=== PATIENT | female | born 1960 | race Asian ===

== ENCOUNTER 2019-01-27 20:40 | Inpatient (IN) | payer MEDICARE, MEDICAID ==
[~2019-01-27] VITALS: Ht 162.6 cm; Wt 89.4 kg
[2019-01-27 20:45] VITALS: BP 131/80
--- NOTE | 2019-01-27 20:45 | NUR ---
ED Nurse Note: PT brought in my AP for complaint of lower back pain and UTI. Pt alert, responsive but there is difficulty obtaining information from pt as there is a delay in speech. Pt has hx of paranoid schizophrenia, DMII, HLD, anxiety, myopia, COPD, neuropathy, depression, HTN, and falls. Labs drawn and urine sent to lab. VSS. Showing no signs of acute distress.
[2019-01-27] MEDS ORDERED: CATAPRES0.1 MG ORAL (20:49)
[2019-01-27] MEDS ORDERED: COLACE100 MG ORAL (20:50)
[2019-01-27] MEDS ORDERED: DEPAKOTE125 MG PO (20:50)
[2019-01-27] MEDS ORDERED: DULCOLAX10 MG RC (20:51)
[2019-01-27] MEDS ORDERED: FLEET ENEMA133 ML RECTAL (20:51)
[2019-01-27] MEDS ORDERED: GABAPENTIN300 MG ORAL (20:52)
[2019-01-27] MEDS ORDERED: GERI-LANTA LIQ355 ML PO (20:52)
[2019-01-27] MEDS ORDERED: MILK OF MA400 MG/51 ORAL (20:53)
[2019-01-27] MEDS ORDERED: LACTULOSE20 GM/301 ORAL (20:53)
[2019-01-27] MEDS ORDERED: OS-CAL 500+D31 EAC1 PO (20:54)
[2019-01-27] MEDS ORDERED: TYLENOL EXTRA500 MG ORAL (20:54)
[2019-01-27] MEDS ORDERED: UTI-STAT L3875 MG/31 PO (20:55)
[2019-01-27] MEDS ORDERED: ZYPREXA10 MG ORAL ×2 (20:55→23:59)
[2019-01-27] MEDS ORDERED: VITAMIN D1000 UNI1 ORAL (20:55)
[2019-01-27] MEDS ORDERED: Ketorolac 30mg Inj IV ONE (21:00)
--- NOTE | 2019-01-27 21:06 | Emergency Room Report ---
History of Present Illness General Chief Complaint: Pain Source: Patient, Medical Record Present Illness HPI This is a 58-year-old female with a history of schizo affective disorder. Also history of COPD and hypotension. Patient presents with chief complaint of lower back pain and painful urination. Onset for last few days. No nausea no vomiting. No fever chills. Pain is 8 out of 10. History is limited because of her psychiatric history. Patient was sent in by her primary care doctor from [facility] for further workup. Allergies: Coded Allergies: PENICILLINS (Verified Allergy, Unknown, 01/27/19) Uncoded Allergies: EGGS (Allergy, Unknown, 01/27/19) Patient History Past Medical History: see triage record, old chart reviewed, HTN, COPD, psych hx Past Surgical History: other Pertinent Family History: none Social History: Reports: smoking Last Menstrual Period: na Now: No Immunizations: other Reviewed Nursing Documentation: PMH: Agreed; PSxH: Agreed Nursing Documentation-PMH Past Medical History: No History, Except For Hx Hypertension: Yes Hx COPD: Yes Hx Diabetes: Yes History Of Psychiatric Problem: Yes - bipolar, schizoaffective Review of Systems Eye: Denies: eye pain, blurred vision ENT: Denies: ear pain, nose congestion, throat swelling Respiratory: Denies: cough, shortness of breath Cardiovascular: Denies: chest pain, palpitations Gastrointestinal: Denies: abdominal pain, diarrhea, nausea, vomiting Genitourinary: Reports: dysuria Musculoskeletal: Reports: back pain; Denies: joint pain Skin: Denies: rash Neurological: Denies: headache, numbness Endocrine: Denies: increased thirst, increased urine Hematologic/Lymphatic: Denies: easy bruising All Other Systems: negative except mentioned in HPI Physical Exam Vital Signs Date Time Temp Pulse Resp B/P (MAP) Pulse Ox O2 Delivery O2 Flow Rate FiO2 01/27/19 20:40 98.4 85 17 94 Room Air vitals unremarkable Sp02 EP Interpretation: reviewed, normal General Appearance: well appearing, no apparent distress, alert Head: normocephalic, atraumatic Eyes: bilateral eye PERRL, bilateral eye EOMI ENT: hearing grossly normal, normal pharynx Neck: full range of motion, supple, no meningismus Respiratory: chest non-tender, lungs clear, normal breath sounds Cardiovascular #1: regular rate, rhythm, no murmur Gastrointestinal: normal bowel sounds, non tender, no mass, no organomegaly, no bruit, non-distended Musculoskeletal: back normal, gait/station normal, normal range of motion Psychiatric: mood/affect normal Skin: warm/dry Medical Decision Making Diagnostic Impression: Primary Impression: Intractable low back pain Additional Impression: Lumbar disc disease ER Course Patient presents with back pain and some dysuria. No evidence of any infection on the urine. Labs unremarkable. CT scan showed degenerative changes with right psoas and iliopsoas muscle atrophy. I discussed the case with Dr. Albarado who will admit for further workup. Lab Results Impression labs unremarkable CT/MRI/US Diagnostic Results CT/MRI/US Diagnostic Results : Imaging Test Ordered: CT lumbar spine Impression Read by radiologist. Degenerative disc disease. Right psoas muscle atrophy. Last Vital Signs Date Time Temp Pulse Resp B/P (MAP) Pulse Ox O2 Delivery O2 Flow Rate FiO2 01/27/19 20:40 98.4 85 17 94 Room Air Status: improved Disposition: ADMITTED INPATIENT Condition: Serious Referrals: Alexandro Albarado DO (PCP) Reuben Vences MD January 27, 2019 21:06
[2019-01-27 21:11] LABS: APPEARANCE,URINE CLEAR; BASOPHILS % (AUTO) 1.4 % (0.0-2.0); BILIRUBIN, URINE NEGATIVE (NEGATIVE); COLOR,URINE PALE YELLOW; EOSINOPHILS % (AUTO) 4.8 % (0.0-3.0); GLUCOSE, URINE (UA) NEGATIVE (NEGATIVE); HEMATOCRIT 43.7 % (37.0-47.0); HEMOGLOBIN 14.6 G/DL (12.0-16.0); KETONES,URINE 2+ (NEGATIVE); LEUKOCYTE ESTERASE ,URINE 1+ (NEGATIVE); LYMPHOCYTES % (AUTO) 47.2 % (20.0-45.0); MEAN CORPUSCULAR VOLUME 91 FL (80-99); MONOCYTES % (AUTO) 5.7 % (1.0-10.0); NEUTROPHILS % (AUTO) 40.9 % (45.0-75.0); NITRITE,URINE NEGATIVE (NEGATIVE); PH,URINE 7 (4.5-8.0); PLATELET COUNT 210 K/UL (150-450); PROTEIN,URINE NEGATIVE (NEGATIVE); RED BLOOD COUNT 4.81 M/UL (4.20-5.40); RED CELL DISTRIBUTION WIDTH 12.6 % (11.6-14.8); UROBILINOGEN,URINE NORMAL MG/DL (0.0-1.0); WHITE BLOOD COUNT 9.8 K/UL (4.8-10.8)
[2019-01-27 21:23] LABS: ANION GAP 6 mmol/L (5-15); BLOOD UREA NITROGEN 10 mg/dL (7-18); CALCIUM 9.7 MG/DL (8.5-10.1); CARBON DIOXIDE 32 MMOL/L (21-32); CHLORIDE 103 MMOL/L (98-107); CREATININE 0.7 MG/DL (0.55-1.30); POTASSIUM 4.3 MMOL/L (3.5-5.1); SODIUM 141 MMOL/L (136-145)
--- NOTE | 2019-01-27 22:36 | Diagnostic Imaging Report ---
EXAM: CT Lumbar Spine Without Intravenous Contrast CLINICAL HISTORY: Patient has schizophrenia and was only able to report lower back pain. No additional information provided TECHNIQUE: Axial computed tomography images of the lumbar spine without intravenous contrast. CTDI is 24.05 mGy and DLP is 695 mGy-cm. One or more of the following dose reduction techniques were used: automated exposure control, adjustment of the mA and/or kV according to patient size, use of iterative reconstruction technique. Coronal and sagittal reconstructions are performed COMPARISON: No relevant prior studies available. FINDINGS: Vertebrae: Unremarkable. No fracture. Discs/spinal canal/neural foramina: Mild degenerative disc disease. No spinal canal stenosis. Soft tissues: Right psoas and iliopsoas muscle atrophy. Vasculature: Small amount of atherosclerotic calcifications. IMPRESSION: 1. Mild degenerative disc disease. 2. Right psoas and iliopsoas muscle atrophy.
--- NOTE | 2019-01-27 22:45 | NUR ---
ED Nurse Note: Pt transferred to M/S floor. Report given to CARMELA Ornelas. VSS. Showing no signs of acute distress. All belongings taken with patient along with belongings list. Pt accompanied by building code administrator.
--- NOTE | 2019-01-27 23:00 | NUR ---
NURSE NOTES: RECEIVED PATIENT FROM ER, GOT REPORT FROM CAMRELA PARDO. PATIENT IN BED, ASLEEP, AROUSABLE TO TOUCH AND NAME. PATIENT OPENS EYES. WHEN NURSE ASKED THE PATIENT QUESTIONS FOR NEURO CHECK, PATIENT JUST STARED AND DID NOT ANSWER AND THEN WENT BACK TO SLEEP. IV IN PLACE. REVIEWED PATIENT BELONGINGS WHICH WERE A BLANKET AND WATCH WITH CHARGE NURSE SINCE PATIENT IS SLEEPING AND ADMITTING DIAGNOSIS IS ALTERED MENTAL STATUS. SKIN ASSESSMENT DONE - NO OPEN WOUNDS OR PRESSURE ULCERS NOTED, NOTED TO HAVE HEALED SCAR NEAR THE BUTTOCKS AREA AND DISCOLORATION NEAR THE LEFT ANKLE. BED IN LOWEST POSITION, CALL LIGHT WITHIN REACH, BED ALARM ON. WILL CONTINUE TO MONITOR.
--- NOTE | 2019-01-27 23:11 | NUR ---
NURSE NOTES: LEFT MESSAGE FOR DR. MCCONNELL REGARDING ADMISSION ORDERS, AWAITING RESPONSE. CHARGE NURSE AWARE.
[2019-01-27 23:15] VITALS: BP 119/64
[2019-01-27] MEDS ORDERED: ACETAMINOPHEN500 M5 ORAL (23:59)
[2019-01-27] MEDS ORDERED: BENZTROPINE ME0.5 MG PO (23:59)
[2019-01-27] MEDS ORDERED: DEPAKOTE250 MG PO (23:59)
--- NOTE | 2019-01-28 01:01 | Consultation ---
History of Present Illness General Date patient seen: January 27, 2019 Chief Complaint: AMS Referring physician: Dr. Gregorio Gan Present Illness HPI Katina Almaraz is a 58-year-old female with a history of schizo affective disorder, COPD, and hypotension who presented to [facility] ED with lower back pain and painful urination for the last few days. She is normally a halfway resident and is a poor historian. At the time of her exam, she is lethargic and somewhat confused. . Allergies: Coded Allergies: PENICILLINS (Verified Allergy, Unknown, 01/27/19) Uncoded Allergies: EGGS (Allergy, Unknown, 01/27/19) Medication History Scheduled Benztropine Mesylate* (Cogentin*), 1 MG PO BID, (Reported) Calcium Carbonate/Vitamin D3 (Os-Eduar 500+D3 Caplet), 1 EACH PO DAILY, (Reported) Cholecalciferol (Vitamin D3)* (Vitamin D*), 2,000 UNITS ORAL DAILY, (Reported) Cran/Vitc/Mannose/Inulin/Brom (Uti-Stat Liquid), 30 ML PO DAILY, (Reported) Divalproex Sodium (Depakote), 125 MG PO DAILY, (Reported) Divalproex Sodium* (Depakote*), 250 MG PO HS, (Reported) Docusate Sodium* (Colace*), 100 MG ORAL DAILY, (Reported) Gabapentin* (Gabapentin*), 300 MG ORAL TID, (Reported) Lactulose (Lactulose*), 60 ML ORAL TID, (Reported) Olanzapine* (Zyprexa*), 10 MG ORAL DAILY, (Reported) Olanzapine* (Zyprexa*), 15 MG ORAL BEDTIME, (Reported) Scheduled PRN Acetaminophen* (Tylenol Extra Strength*), 1,000 MG ORAL Q6H PRN for Moderate Pain (Pain Scale 4-6), (Reported) Acetaminophen* (Acetaminophen 325MG Tablet*), 650 MG ORAL Q6H PRN for Mild Pain (Pain Scale 1-3), (Reported) Bisacodyl (Dulcolax), 10 MG RC for Constipation, (Reported) Clonidine Hcl* (Catapres*), 0.1 MG ORAL EVERY 6 HOURS PRN for For High Blood Pressure, (Reported) Mag Hydrox/Al Hydrox/Simeth (Ursula-Lanta Liquid), 30 ML PO Q4HR PRN for GI DISTRESS, (Reported) Magnesium Hydroxide* (Milk Of Magnesia*), 30 ML ORAL DAILY PRN for Constipation, (Reported) Na Phos,M-B/Na Phos,Di-Ba* (Fleet Enema*), 133 ML RECTAL Q2DAYS PRN for Constipation, (Reported) Patient History Limited by: medical condition History Provided By: Patient, Medical Record Healthcare decision maker Resuscitation status Advanced Directive on File Review of Systems All Other Systems: negative except mentioned in HPI Physical Exam General Appearance: WD/WN, no apparent distress, lethargic, confused - To name of hospital and date. 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, no motor/sensory deficits, no Babinski, disoriented, depressed affect Musculoskeletal: no effusion, atrophy - Right Psoas/ Ilipsoas Weakness - limited movement on exam- exam also lethargic Last 24 Hour Vital Signs Date Time Temp Pulse Resp B/P (MAP) Pulse Ox O2 Delivery O2 Flow Rate FiO2 01/27/19 23:38 Room Air 01/27/19 23:15 97.2 73 18 119/64 (82) 98 01/27/19 22:45 97.9 78 18 114/61 99 Room Air 01/27/19 20:45 98.4 74 17 131/80 94 Room Air 01/27/19 20:40 98.4 85 17 94 Room Air Laboratory Tests Test 01/27/19 20:55 White Blood Count 9.8 K/UL (4.8-10.8) Red Blood Count 4.81 M/UL (4.20-5.40) Hemoglobin 14.6 G/DL (12.0-16.0) Hematocrit 43.7 % (37.0-47.0) Mean Corpuscular Volume 91 FL (80-99) Mean Corpuscular Hemoglobin 30.4 PG (27.0-31.0) Mean Corpuscular Hemoglobin Concent 33.4 G/DL (32.0-36.0) Red Cell Distribution Width 12.6 % (11.6-14.8) Platelet Count 210 K/UL (150-450) Mean Platelet Volume 6.0 FL (6.5-10.1) L Neutrophils (%) (Auto) 40.9 % (45.0-75.0) L Lymphocytes (%) (Auto) 47.2 % (20.0-45.0) H Monocytes (%) (Auto) 5.7 % (1.0-10.0) Eosinophils (%) (Auto) 4.8 % (0.0-3.0) H Basophils (%) (Auto) 1.4 % (0.0-2.0) Urine Color Pale yellow Urine Appearance Clear Urine pH 7 (4.5-8.0) Urine Specific [place] 1.010 (1.005-1.035) Urine Protein Negative (NEGATIVE) Urine Glucose (UA) Negative (NEGATIVE) Urine Ketones 2+ (NEGATIVE) H Urine Blood 5+ (NEGATIVE) H Urine Nitrite Negative (NEGATIVE) Urine Bilirubin Negative (NEGATIVE) Urine Urobilinogen Normal MG/DL (0.0-1.0) Urine Leukocyte Esterase 1+ (NEGATIVE) H Urine RBC 10-15 /HPF (0 - 2) H Urine WBC 0-2 /HPF (0 - 2) Urine Squamous Epithelial Cells Few /LPF (NONE/OCC) Urine Bacteria Few /HPF (NONE) Sodium Level 141 MMOL/L (136-145) Potassium Level 4.3 MMOL/L (3.5-5.1) Chloride Level 103 MMOL/L (98-107) Carbon Dioxide Level 32 MMOL/L (21-32) Anion Gap 6 mmol/L (5-15) Blood Urea Nitrogen 10 mg/dL (7-18) Creatinine 0.7 MG/DL (0.55-1.30) Estimat Glomerular Filtration Rate > 60 mL/min (>60) Glucose Level 131 MG/DL (74-106) H Calcium Level 9.7 MG/DL (8.5-10.1) Microbiology Date/Time Source Procedure Growth Status 01/27/19 21:03 Rectum Received Height (Feet): 5 Height (Inches): 4.00 Weight (Pounds): 199 Assessment/Plan Problem List: (1) Intractable low back pain ICD Codes: M54.5 - Low back pain SNOMED: 02742434653069391 (2) UTI (urinary tract infection) ICD Codes: N39.0 - Urinary tract infection, site not specified SNOMED: 54940624 (3) Altered mental status ICD Codes: R41.82 - Altered mental status, unspecified SNOMED: 934820343 Qualifiers: Qualified Codes: R40.0 - Somnolence (4) Lumbar disc disease ICD Codes: M51.9 - Unspecified thoracic, thoracolumbar and lumbosacral intervertebral disc disorder SNOMED: 544771840 Status: stable Assessment/Plan: NEuro Obs Q 4 hours Na 135-145 Correct/ Replete lytes as needed PT encouraged Manage pain - avoid opoids, benzodiazapenes, and anticholinergics Abx as per primary / ID Maintain normothermia Maintain normoglycemia with ISS CHeck TSH MRI L Spine may be considered when patient is more alert Andreea Guerrero N.P. January 28, 2019 01:01
[2019-01-28] MEDS ORDERED: Acetaminophen 500mg (ES) tab ORAL PRN (02:15)
[2019-01-28] MEDS ORDERED: Milk of Magnesia 30ml Ud ORAL PRN (02:15)
[2019-01-28] MEDS ORDERED: Mylanta II UD 30ml ORAL PRN (02:15)
[2019-01-28] MEDS ORDERED: Morphine Sulfate 2mg/ml Inj(IV/IM USE ONLY) IVP PRN ×2 (02:15→08:15)
[2019-01-28] MEDS ORDERED: Fleet's Enema 133ml RECTAL PRN (02:15)
--- NOTE | 2019-01-28 02:20 | NUR ---
NURSE NOTES: RECEIVED ADMISSION ORDERS FROM DR. MCCONNELL - CONTINUE SNF MEDS, MORPHINE 2 MG IVP Q4HR PRN FOR PAIN, AM LABS, IV FLUIDS, AND TO CALL DR. KWOK FOR ANY FURTHER ORDERS. ORDERS CARRIED OUT. CHARGE NURSE AWARE. PATIENT STILL ASLEEP, NO DISTRESS.
[2019-01-28] MEDS: D5 1/2NS 1,000 ML IV SCH ×2 (03:26→17:27)
[2019-01-28 04:17] VITALS: BP 103/54
--- NOTE | 2019-01-28 07:36 | NUR ---
HAND-OFF: Report given to KRYSTIAN ROMAN LVN. Addendum: 01/28/19 at 0801 by GRETCHEN BUSTAMANTE RN RN ENDORSED AM NURSE AND COIL WINDER REPAIR TO FOLLOW UP REGARDING CODE STATUS AND DVT PROPHYLAXIS.
--- NOTE | 2019-01-28 07:45 | NUR ---
NURSE NOTES: RECEIVED PATIENT A/A/OX3, ABLE TO MAKE THINGS KNOWN WITH GARBLED SPEECH. NEED ASSISTANCE TO FOOD INTAKE. KEPT HOB ELEVATED. SIDERAILS ARE UP X3, BED IS IN THE LOWEST POSITION. BED IS IN LOCK AND ALARM MODE. CALL LIGHT IS WITHIN REACH. WILL CONT TO MONITOR
[2019-01-28 08:00] VITALS: BP 104/73
[2019-01-28] MEDS ORDERED: Miralax 17gm pkt ORAL PRN (08:15)
[2019-01-28] MEDS ORDERED: Zolpidem 5mg tab ORAL PRN (08:15)
[2019-01-28] MEDS ORDERED: LORazepam Inj 2mg/ml 1ml IV PRN (08:15)
[2019-01-28] MEDS ORDERED: Morphine Sulfate 4mg/ml Inj (IV USE ONLY) IVP PRN (08:15)
[2019-01-28] MEDS: OLANZapine 10mg tab ORAL SCH ×2 (08:45→20:56)
[2019-01-28] MEDS: Depakote 125mg Sprinkles ORAL SCH (08:45)
[2019-01-28] MEDS: Vitamin D 1000 IU Tab ORAL SCH (08:46)
[2019-01-28] MEDS: Docusate 100mg cap ORAL SCH (08:46)
[2019-01-28] MEDS: Benztropine 1mg tab ORAL SCH ×2 (08:46→17:26)
[2019-01-28] MEDS: Calcium Carbonate 500mg w/Vit D 200iu tab ORAL SCH (08:46)
[2019-01-28] MEDS: Heparin 5000 units/ml inj SUBQ SCH ×2 (08:50→20:57)
--- NOTE | 2019-01-28 10:00 | NUR ---
NURSE NOTES: PATIENT HAD A BOWEL MOVEMENT X1 AND SKIN IS INTACT. NO ACUTE RESP DISTRESS NOTED. WILL CONT TO MONITOR.
--- NOTE | 2019-01-28 11:45 | Consultation ---
Consult Note Consult Note # [id number] Rodney Stanton MD January 28, 2019 11:45
[2019-01-28 12:00] VITALS: BP 138/79
[2019-01-28] MEDS: Ciprofloxacin 500mg tab ORAL SCH ×2 (12:51→20:55)
--- NOTE | 2019-01-28 13:11 | NUR ---
CASE MANAGEMENT: REVIEW 58Y/F HILARIO FROM [facility] CC: AMS . LOWER BACK PAIN SI: UTI . LUMBAR DISC DISEASE T 97.4 HR 82 RR 18 BP 103/54 SAT 95% ROOM AIR UA: KETONES 2+ BLOOD 5+ LEUKOCYTE 1+ RBC 10-15 IS: TORADOL IV X1 NS IVF BOLUS X1 MORPHINE IV X1 TYLENOL PO X1 PATIENT ADMITTED TO MED/SURG UNIT 01/27/2019 DCP: PATIENT IS FROM [facility]
--- NOTE | 2019-01-28 15:00 | Consultation ---
DATE OF CONSULTATION: 01/28/2019 INFECTIOUS DISEASES CONSULTATION CONSULTING PHYSICIAN: Rodney Stanton M.D. REFERRING PHYSICIAN: Alexandro Albarado D.O. REASON FOR CONSULTATION: Evaluation of the patient for UTI. HISTORY OF PRESENT ILLNESS: The patient is a 58-year-old female with multiple medical problems, poor historian, who was admitted to this medical center for dysuria. Infectious Disease consultation has been requested for further evaluation of the patient's antibiotic management. The patient denies of having any back pain at the time of my exam. No flank tenderness. Infectious Disease consultation has been requested for further evaluation of the patient for possible UTI. PAST MEDICAL HISTORY: 1. Neuropathy. 2. Hypertension. 3. COPD. 4. Dysphagia. 5. Diabetes. 6. Schizophrenia. 7. Bipolar disorder. 8. Depression/anxiety. 9. Hyperlipidemia. MEDICATIONS: Currently off of antibiotics. ALLERGIES: Penicillin. FAMILY HISTORY: Noncontributory. REVIEW OF SYSTEMS: The patient denies having cough, runny nose, sore throat, nausea, vomiting, or abdominal pain. The patient had dysuria prior to admission. Overall, the patient is a poor historian. PHYSICAL EXAMINATION: VITAL SIGNS: Temperature 97, pulse 86, respiratory rate 18, and blood pressure 104/72. HEENT: No pale conjunctivae. No scleral icterus. NECK: No lymphadenopathy. CHEST: Clear. HEART: S1 and S2. ABDOMEN: Soft, obese, nontender. No flank tenderness. EXTREMITIES: No cyanosis at this time. NEUROLOGIC: Awake. LABORATORY AND DIAGNOSTIC DATA: White blood cells 9.8, hemoglobin 14, and platelets 210. UA, 10-15 red blood cells, 0-2 white blood cells. BUN [address] of the spine, white cells and evidence of muscle atrophy. ASSESSMENT: 1. Dysuria/microscopic hematuria, probable cystitis. 2. Afebrile. 3. Normal white blood cell count. PLAN: 1. We will start the patient on Cipro x3 days. 2. We will send urine culture. 3. We will monitor CBC and BMP. 4. We will do an ultrasound of the kidneys. 5. Based on the patient's clinical course and labs, we will do further recommendations. Thank you, Dr. Alexandro Albarado, for allowing me to participate in the care of this patient. I will follow the patient with you during this admission. Rodney Stanton M.D. DR: EVE JOB#: [id number] CC:
--- NOTE | 2019-01-28 15:10 | NUR ---
PT Note Attempted to see patinet x 2. Patient was fast asleep in AM, unable to arouse. In PM, patient was not available; having ultrasound.
[2019-01-28 16:00] VITALS: BP 138/78
--- NOTE | 2019-01-28 17:16 | Consultation ---
History of Present Illness General Chief Complaint: Pain Present Illness Allergies: Coded Allergies: PENICILLINS (Verified Allergy, Unknown, 01/27/19) Uncoded Allergies: EGGS (Allergy, Unknown, 01/27/19) Medication History Scheduled Benztropine Mesylate* (Cogentin*), 1 MG PO BID, (Reported) Calcium Carbonate/Vitamin D3 (Os-Eduar 500+D3 Caplet), 1 EACH PO DAILY, (Reported) Cholecalciferol (Vitamin D3)* (Vitamin D*), 2,000 UNITS ORAL DAILY, (Reported) Cran/Vitc/Mannose/Inulin/Brom (Uti-Stat Liquid), 30 ML PO DAILY, (Reported) Divalproex Sodium (Depakote), 125 MG PO DAILY, (Reported) Divalproex Sodium* (Depakote*), 250 MG PO HS, (Reported) Docusate Sodium* (Colace*), 100 MG ORAL DAILY, (Reported) Gabapentin* (Gabapentin*), 300 MG ORAL TID, (Reported) Lactulose (Lactulose*), 60 ML ORAL TID, (Reported) Olanzapine* (Zyprexa*), 10 MG ORAL DAILY, (Reported) Olanzapine* (Zyprexa*), 15 MG ORAL BEDTIME, (Reported) Scheduled PRN Acetaminophen (Acetaminophen), 650 MG ORAL Q6HR PRN for Mild Pain (Pain Scale 1- 3), (Reported) Acetaminophen* (Tylenol Extra Strength*), 1,000 MG ORAL Q6H PRN for Moderate Pain (Pain Scale 4-6), (Reported) Bisacodyl (Dulcolax), 10 MG RC for Constipation, (Reported) Clonidine Hcl* (Catapres*), 0.1 MG ORAL EVERY 6 HOURS PRN for For High Blood Pressure, (Reported) Mag Hydrox/Al Hydrox/Simeth (Ursula-Lanta Liquid), 30 ML PO Q4HR PRN for GI DISTRESS, (Reported) Magnesium Hydroxide* (Milk Of Magnesia*), 30 ML ORAL DAILY PRN for Constipation, (Reported) Na Phos,M-B/Na Phos,Di-Ba* (Fleet Enema*), 133 ML RECTAL Q2DAYS PRN for Constipation, (Reported) Patient History Healthcare decision maker Resuscitation status Advanced Directive on File Physical Exam Last 24 Hour Vital Signs Date Time Temp Pulse Resp B/P (MAP) Pulse Ox O2 Delivery O2 Flow Rate FiO2 01/28/19 16:00 97.8 61 18 138/78 (98) 95 01/28/19 12:00 97.0 82 16 138/79 (98) 98 01/28/19 09:09 Room Air 01/28/19 08:00 97.5 81 16 104/73 (83) 96 01/28/19 04:17 97.4 77 18 103/54 (70) 95 01/27/19 23:38 Room Air 01/27/19 23:15 97.2 73 18 119/64 (82) 98 01/27/19 22:45 97.9 78 18 114/61 99 Room Air 01/27/19 20:45 98.4 74 17 131/80 94 Room Air 01/27/19 20:40 98.4 85 17 94 Room Air Intake and Output 01/27/19 01/28/19 18:59 06:59 Intake Total 120 ml Balance 120 ml IV Total 120 ml # Voids 2 Laboratory Tests Test 01/27/19 20:55 White Blood Count 9.8 K/UL (4.8-10.8) Red Blood Count 4.81 M/UL (4.20-5.40) Hemoglobin 14.6 G/DL (12.0-16.0) Hematocrit 43.7 % (37.0-47.0) Mean Corpuscular Volume 91 FL (80-99) Mean Corpuscular Hemoglobin 30.4 PG (27.0-31.0) Mean Corpuscular Hemoglobin Concent 33.4 G/DL (32.0-36.0) Red Cell Distribution Width 12.6 % (11.6-14.8) Platelet Count 210 K/UL (150-450) Mean Platelet Volume 6.0 FL (6.5-10.1) L Neutrophils (%) (Auto) 40.9 % (45.0-75.0) L Lymphocytes (%) (Auto) 47.2 % (20.0-45.0) H Monocytes (%) (Auto) 5.7 % (1.0-10.0) Eosinophils (%) (Auto) 4.8 % (0.0-3.0) H Basophils (%) (Auto) 1.4 % (0.0-2.0) Urine Color Pale yellow Urine Appearance Clear Urine pH 7 (4.5-8.0) Urine Specific [place] 1.010 (1.005-1.035) Urine Protein Negative (NEGATIVE) Urine Glucose (UA) Negative (NEGATIVE) Urine Ketones 2+ (NEGATIVE) H Urine Blood 5+ (NEGATIVE) H Urine Nitrite Negative (NEGATIVE) Urine Bilirubin Negative (NEGATIVE) Urine Urobilinogen Normal MG/DL (0.0-1.0) Urine Leukocyte Esterase 1+ (NEGATIVE) H Urine RBC 10-15 /HPF (0 - 2) H Urine WBC 0-2 /HPF (0 - 2) Urine Squamous Epithelial Cells Few /LPF (NONE/OCC) Urine Bacteria Few /HPF (NONE) Sodium Level 141 MMOL/L (136-145) Potassium Level 4.3 MMOL/L (3.5-5.1) Chloride Level 103 MMOL/L (98-107) Carbon Dioxide Level 32 MMOL/L (21-32) Anion Gap 6 mmol/L (5-15) Blood Urea Nitrogen 10 mg/dL (7-18) Creatinine 0.7 MG/DL (0.55-1.30) Estimat Glomerular Filtration Rate > 60 mL/min (>60) Glucose Level 131 MG/DL (74-106) H Calcium Level 9.7 MG/DL (8.5-10.1) Microbiology Date/Time Source Procedure Growth Status 01/27/19 21:03 Rectum Received Height (Feet): 5 Height (Inches): 4.00 Weight (Pounds): 199 Medications Current Medications Medications (Trade) Dose Ordered Sig/Servando Route PRN Reason Start Time Stop Time Status Last Admin Dose Admin Acetaminophen (Tylenol) 650 mg Q4H PRN ORAL fever 01/28/19 08:15 02/27/19 08:14 Acetaminophen (Tylenol) 650 mg Q6HR PRN ORAL Mild Pain (Pain Scale 1-3) 01/28/19 02:15 02/27/19 02:14 Al Hydroxide/Mg Hydroxide (Mylanta II) 30 ml Q4HR PRN ORAL GI DISTRESS 01/28/19 02:15 02/27/19 02:14 Benztropine Mesylate (Cogentin) 1 mg BID ORAL 01/28/19 09:00 02/27/19 08:59 01/28/19 08:46 Bisacodyl (Dulcolax) 10 mg NEEDED PRN RECTAL Constipation 01/28/19 02:15 02/27/19 02:14 Calcium Carbonate (OsCal D) 1 tab DAILY ORAL 01/28/19 09:00 02/27/19 08:59 01/28/19 08:46 Ciprofloxacin (Cipro 500mg tab) 500 mg EVERY 12 HOURS ORAL 01/28/19 12:00 02/04/19 11:59 01/28/19 12:51 Clonidine HCl (Catapres Tab) 0.1 mg EVERY 6 HOURS PRN ORAL For High Blood Pressure 01/28/19 02:15 02/27/19 02:14 Dextrose (Dextrose 50%) 25 ml Q30M PRN IV Hypoglycemia 01/28/19 08:15 02/27/19 08:14 Dextrose (Dextrose 50%) 50 ml Q30M PRN IV Hypoglycemia 01/28/19 08:15 02/27/19 08:14 Dextrose/Sodium Chloride 1,000 ml @ 60 mls/hr [id number] IV 01/28/19 02:15 02/27/19 02:14 01/28/19 03:26 Divalproex Sodium (Depakote Sprinkles) 125 mg DAILY ORAL 01/28/19 09:00 02/27/19 08:59 01/28/19 08:45 Divalproex Sodium (Depakote) 250 mg BEDTIME ORAL 01/28/19 21:00 02/27/19 20:59 Docusate Sodium (Colace) 100 mg DAILY ORAL 01/28/19 09:00 02/27/19 08:59 01/28/19 08:46 Gabapentin (Neurontin) 300 mg TID ORAL 01/28/19 09:00 02/27/19 08:59 01/28/19 12:51 Heparin Sodium (Porcine) (Heparin 5000 units/ml) 5,000 units EVERY 12 HOURS SUBQ 01/28/19 09:00 02/27/19 08:59 01/28/19 08:50 Lorazepam (Ativan 2mg/ml 1ml) 0.5 mg Q4H PRN IV For Anxiety 01/28/19 08:15 02/04/19 08:14 Magnesium Hydroxide (Mom) 30 ml DAILY PRN ORAL Constipation 01/28/19 02:15 02/27/19 02:14 Morphine Sulfate (Morphine Sulfate) 2 mg Q4H PRN IVP For Pain 4-6 01/28/19 08:15 02/04/19 08:14 Morphine Sulfate (Morphine Sulfate) 4 mg Q4H PRN IVP For Pain 7-10 01/28/19 08:15 02/04/19 08:14 Olanzapine (ZyPREXA) 10 mg DAILY ORAL 01/28/19 09:00 02/27/19 08:59 01/28/19 08:45 Olanzapine (ZyPREXA) 15 mg BEDTIME ORAL 01/28/19 21:00 02/27/19 20:59 Ondansetron HCl (Zofran) 4 mg Q6H PRN IVP Nausea & Vomiting 01/28/19 08:15 02/27/19 08:14 Polyethylene Glycol (Miralax) 17 gm HSPRN PRN ORAL Constipation 01/28/19 08:15 02/27/19 08:14 Sodium Phosphate (Fleet's Sodium Phosl Enema) 133 ml NEEDED PRN RECTAL Constipation 01/28/19 02:15 02/27/19 02:14 Vitamin D (Vitamin D) 2,000 intlu DAILY ORAL 01/28/19 09:00 02/27/19 08:59 01/28/19 08:46 Zolpidem Tartrate (Ambien) 5 mg HSPRN PRN ORAL Insomnia 01/28/19 08:15 02/04/19 08:14 Deny Gan MD January 28, 2019 17:16
--- NOTE | 2019-01-28 19:03 | NUR ---
HAND-OFF: Report given to
[2019-01-28] MEDS ORDERED: BENZTROPINE ME0.5 MG PO (19:50)
[2019-01-28] MEDS ORDERED: ACETAMINOPHEN325 M1 ORAL (19:56)
--- NOTE | 2019-01-28 20:02 | NUR ---
NURSE NOTES: Received patient awake with delayed and garbled speech, very confused,resting comfortably,kept clean and dry.
[2019-01-29 04:00] VITALS: BP 125/59
[2019-01-29 06:55] LABS: BASOPHILS % (AUTO) 1.5 % (0.0-2.0); EOSINOPHILS % (AUTO) 6.4 % (0.0-3.0); HEMATOCRIT 39.5 % (37.0-47.0); HEMOGLOBIN 13.1 G/DL (12.0-16.0); LYMPHOCYTES % (AUTO) 45.7 % (20.0-45.0); MEAN CORPUSCULAR VOLUME 93 FL (80-99); NEUTROPHILS % (AUTO) 40.5 % (45.0-75.0); PLATELET COUNT 186 K/UL (150-450); RED BLOOD COUNT 4.27 M/UL (4.20-5.40); RED CELL DISTRIBUTION WIDTH 13.1 % (11.6-14.8)
--- NOTE | 2019-01-29 07:03 | NUR ---
HAND-OFF: Report given to Ivelisse Romero LVN.
[2019-01-29 07:07] LABS: ALANINE AMINOTRANSFERASE 25 U/L (12-78); ALBUMIN/GLOBULIN RATIO 0.8 (1.0-2.7); ALKALINE PHOSPHATASE 61 U/L (46-116); ANION GAP 6 mmol/L (5-15); ASPARTATE AMINO TRANSFERASE 15 U/L (15-37); BILIRUBIN,TOTAL 0.2 MG/DL (0.2-1.0); BLOOD UREA NITROGEN 14 mg/dL (7-18); CARBON DIOXIDE 31 MMOL/L (21-32); CHLORIDE 107 MMOL/L (98-107); CREATININE 0.6 MG/DL (0.55-1.30); POTASSIUM 3.9 MMOL/L (3.5-5.1); SODIUM 143 MMOL/L (136-145)
--- NOTE | 2019-01-29 07:25 | NUR ---
NURSE NOTES: RECEIVED PATIENT A/A/OX3, ABLE TO MAKE THINGS KNOWN WITH GARBLED SPEECH. NEED ASSISTANCE FOR MEAL PREP. FOR KEPT HOB ELEVATED FOR ASSISTANCE. SIDERAILS ARE UP X3, BED IS IN THE LOWEST POSITION. BED IS IN LOCK AND ALARM MODE. CALL LIGHT IS WITHIN REACH. WILL CONT TO MONITOR
[2019-01-29 07:56] VITALS: BP 115/69
[2019-01-29] MEDS: Vitamin D 1000 IU Tab ORAL SCH (08:17)
[2019-01-29] MEDS: OLANZapine 10mg tab ORAL SCH ×2 (08:17→20:49)
[2019-01-29] MEDS: Benztropine 1mg tab ORAL SCH ×2 (08:17→17:33)
[2019-01-29] MEDS: Ciprofloxacin 500mg tab ORAL SCH ×2 (08:17→20:49)
[2019-01-29] MEDS: Calcium Carbonate 500mg w/Vit D 200iu tab ORAL SCH (08:17)
[2019-01-29] MEDS: Docusate 100mg cap ORAL SCH (08:17)
[2019-01-29] MEDS: Depakote 125mg Sprinkles ORAL SCH (08:18)
[2019-01-29] MEDS: Heparin 5000 units/ml inj SUBQ SCH ×2 (08:21→20:50)
--- NOTE | 2019-01-29 08:30 | General Progress Note ---
Assessment/Plan Problem List: (1) UTI (urinary tract infection) ICD Codes: N39.0 - Urinary tract infection, site not specified SNOMED: 64934364 (2) Lumbar disc disease ICD Codes: M51.9 - Unspecified thoracic, thoracolumbar and lumbosacral intervertebral disc disorder SNOMED: 334063173 (3) Intractable low back pain ICD Codes: M54.5 - Low back pain SNOMED: 92051958498326801 (4) Altered mental status ICD Codes: R41.82 - Altered mental status, unspecified SNOMED: 075953355 Status: unchanged Assessment/Plan: sbx per id, pt diet eval psyc neuro eval cbc bmp am Subjective Allergies: Coded Allergies: PENICILLINS (Verified Allergy, Unknown, 01/27/19) Uncoded Allergies: EGGS (Allergy, Unknown, 01/27/19) All Systems: reviewed and negative except above Subjective sl confused Objective Last 24 Hour Vital Signs Date Time Temp Pulse Resp B/P (MAP) Pulse Ox O2 Delivery O2 Flow Rate FiO2 01/29/19 07:56 98.5 66 16 115/69 (84) 98 01/29/19 04:00 98.7 70 17 125/59 (81) 97 01/28/19 20:29 Room Air 01/28/19 16:00 97.8 61 18 138/78 (98) 95 01/28/19 12:00 97.0 82 16 138/79 (98) 98 01/28/19 09:09 Room Air Intake and Output 01/28/19 01/29/19 19:00 07:00 Intake Total 480 ml 920 ml Balance 480 ml 920 ml Intake Oral 480 ml 200 ml IV Total 720 ml # Voids 4 3 # Bowel Movements 1 Laboratory Tests 01/29/19 05:58: White Blood Count 7.0, Red Blood Count 4.27, Hemoglobin 13.1, Hematocrit 39.5, Mean Corpuscular Volume 93, Mean Corpuscular Hemoglobin 30.8, Mean Corpuscular Hemoglobin Concent 33.2, Red Cell Distribution Width 13.1, Platelet Count 186, Mean Platelet Volume 7.2, Neutrophils (%) (Auto) 40.5L, Lymphocytes (%) (Auto) 45.7H, Monocytes (%) (Auto) 6.0, Eosinophils (%) (Auto) 6.4H, Basophils (%) ( Auto) 1.5, Sodium Level 143, Potassium Level 3.9, Chloride Level 107, Carbon Dioxide Level 31, Anion Gap 6, Blood Urea Nitrogen 14, Creatinine 0.6, Estimat Glomerular Filtration Rate > 60, Glucose Level 114H, Calcium Level 9.0, Total Bilirubin 0.2, Aspartate Amino Transf (AST/SGOT) 15, Alanine Aminotransferase ( ALT/SGPT) 25, Alkaline Phosphatase 61, Total Protein 6.6, Albumin 3.0L, Globulin 3.6, Albumin/Globulin Ratio 0.8L, Thyroid Stimulating Hormone (TSH) 1.184 Height (Feet): 5 Height (Inches): 4.00 Weight (Pounds): 199 General Appearance: lethargic, confused EENT: normal ENT inspection Neck: normal alignment Cardiovascular: normal peripheral pulses, normal rate, regular rhythm Respiratory/Chest: chest wall non-tender, lungs clear, normal breath sounds Abdomen: normal bowel sounds, non tender, soft Extremities: normal inspection Edema: no edema noted Arm (L), no edema noted Arm (R), no edema noted Leg (L), no edema noted Leg (R), no edema noted Pedal (L), no edema noted Pedal (R), no edema noted Generalized Neurologic: responsive, motor weakness Skin: normal pigmentation, warm/dry Alexandro Albarado DO January 29, 2019 08:30
--- NOTE | 2019-01-29 11:20 | NUR ---
PT note PT gigi completed, treatment initiated. Patient was able to sit at the EOB but required maxA x 2 persons to maintain her balance at the EOB. Patient was cooperative with instructions. Patient needs PT services to increase her muscle strength and balance to improve her functional mobility. Addendum: 01/29/19 at 1124 by MEGHNA SOUZA PT Amended: Links added.
[2019-01-29 12:00] VITALS: BP 101/57
--- NOTE | 2019-01-29 12:28 | Consultation ---
History of Present Illness General Date patient seen: January 29, 2019 Chief Complaint: Present Illness Allergies: Coded Allergies: PENICILLINS (Verified Allergy, Unknown, 01/27/19) Uncoded Allergies: EGGS (Allergy, Unknown, 01/27/19) Medication History Scheduled Benztropine Mesylate* (Cogentin*), 1 MG PO BID, (Reported) Calcium Carbonate/Vitamin D3 (Os-Eduar 500+D3 Caplet), 1 EACH PO DAILY, (Reported) Cholecalciferol (Vitamin D3)* (Vitamin D*), 2,000 UNITS ORAL DAILY, (Reported) Cran/Vitc/Mannose/Inulin/Brom (Uti-Stat Liquid), 30 ML PO DAILY, (Reported) Divalproex Sodium (Depakote), 125 MG PO DAILY, (Reported) Divalproex Sodium* (Depakote*), 250 MG PO HS, (Reported) Docusate Sodium* (Colace*), 100 MG ORAL DAILY, (Reported) Gabapentin* (Gabapentin*), 300 MG ORAL TID, (Reported) Lactulose (Lactulose*), 60 ML ORAL TID, (Reported) Olanzapine* (Zyprexa*), 10 MG ORAL DAILY, (Reported) Olanzapine* (Zyprexa*), 15 MG ORAL BEDTIME, (Reported) Scheduled PRN Acetaminophen* (Tylenol Extra Strength*), 1,000 MG ORAL Q6H PRN for Moderate Pain (Pain Scale 4-6), (Reported) Acetaminophen* (Acetaminophen 325MG Tablet*), 650 MG ORAL Q6H PRN for Mild Pain (Pain Scale 1-3), (Reported) Bisacodyl (Dulcolax), 10 MG RC for Constipation, (Reported) Clonidine Hcl* (Catapres*), 0.1 MG ORAL EVERY 6 HOURS PRN for For High Blood Pressure, (Reported) Mag Hydrox/Al Hydrox/Simeth (Ursula-Lanta Liquid), 30 ML PO Q4HR PRN for GI DISTRESS, (Reported) Magnesium Hydroxide* (Milk Of Magnesia*), 30 ML ORAL DAILY PRN for Constipation, (Reported) Na Phos,M-B/Na Phos,Di-Ba* (Fleet Enema*), 133 ML RECTAL Q2DAYS PRN for Constipation, (Reported) Patient History Healthcare decision maker Resuscitation status Advanced Directive on File Physical Exam Last 24 Hour Vital Signs Date Time Temp Pulse Resp B/P (MAP) Pulse Ox O2 Delivery O2 Flow Rate FiO2 01/29/19 12:00 98.1 71 18 101/57 (72) 98 01/29/19 08:33 Room Air 01/29/19 07:56 98.5 66 16 115/69 (84) 98 01/29/19 04:00 98.7 70 17 125/59 (81) 97 01/28/19 20:29 Room Air 01/28/19 16:00 97.8 61 18 138/78 (98) 95 Intake and Output 01/28/19 01/29/19 19:00 07:00 Intake Total 480 ml 920 ml Balance 480 ml 920 ml Intake Oral 480 ml 200 ml IV Total 720 ml # Voids 4 3 # Bowel Movements 1 Laboratory Tests Test 01/29/19 05:58 White Blood Count 7.0 K/UL (4.8-10.8) Red Blood Count 4.27 M/UL (4.20-5.40) Hemoglobin 13.1 G/DL (12.0-16.0) Hematocrit 39.5 % (37.0-47.0) Mean Corpuscular Volume 93 FL (80-99) Mean Corpuscular Hemoglobin 30.8 PG (27.0-31.0) Mean Corpuscular Hemoglobin Concent 33.2 G/DL (32.0-36.0) Red Cell Distribution Width 13.1 % (11.6-14.8) Platelet Count 186 K/UL (150-450) Mean Platelet Volume 7.2 FL (6.5-10.1) Neutrophils (%) (Auto) 40.5 % (45.0-75.0) L Lymphocytes (%) (Auto) 45.7 % (20.0-45.0) H Monocytes (%) (Auto) 6.0 % (1.0-10.0) Eosinophils (%) (Auto) 6.4 % (0.0-3.0) H Basophils (%) (Auto) 1.5 % (0.0-2.0) Sodium Level 143 MMOL/L (136-145) Potassium Level 3.9 MMOL/L (3.5-5.1) Chloride Level 107 MMOL/L (98-107) Carbon Dioxide Level 31 MMOL/L (21-32) Anion Gap 6 mmol/L (5-15) Blood Urea Nitrogen 14 mg/dL (7-18) Creatinine 0.6 MG/DL (0.55-1.30) Estimat Glomerular Filtration Rate > 60 mL/min (>60) Glucose Level 114 MG/DL (74-106) H Calcium Level 9.0 MG/DL (8.5-10.1) Total Bilirubin 0.2 MG/DL (0.2-1.0) Aspartate Amino Transf (AST/SGOT) 15 U/L (15-37) Alanine Aminotransferase (ALT/SGPT) 25 U/L (12-78) Alkaline Phosphatase 61 U/L (46-116) Total Protein 6.6 G/DL (6.4-8.2) Albumin 3.0 G/DL (3.4-5.0) L Globulin 3.6 g/dL Albumin/Globulin Ratio 0.8 (1.0-2.7) L Thyroid Stimulating Hormone (TSH) 1.184 uiU/mL (0.358-3.740) Microbiology Date/Time Source Procedure Growth Status 01/28/19 19:30 Urine,Clean Catch Urine Culture - Preliminary NO GROWTH Resulted Height (Feet): 5 Height (Inches): 4.00 Weight (Pounds): 199 Medications Current Medications Medications (Trade) Dose Ordered Sig/Servando Route PRN Reason Start Time Stop Time Status Last Admin Dose Admin Acetaminophen (Tylenol) 650 mg Q4H PRN ORAL fever 01/28/19 08:15 02/27/19 08:14 Acetaminophen (Tylenol) 650 mg Q6HR PRN ORAL Mild Pain (Pain Scale 1-3) 01/28/19 02:15 02/27/19 02:14 Al Hydroxide/Mg Hydroxide (Mylanta II) 30 ml Q4HR PRN ORAL GI DISTRESS 01/28/19 02:15 02/27/19 02:14 Benztropine Mesylate (Cogentin) 1 mg BID ORAL 01/28/19 09:00 02/27/19 08:59 01/29/19 08:17 Bisacodyl (Dulcolax) 10 mg NEEDED PRN RECTAL Constipation 01/28/19 02:15 02/27/19 02:14 Calcium Carbonate (OsCal D) 1 tab DAILY ORAL 01/28/19 09:00 02/27/19 08:59 01/29/19 08:17 Ciprofloxacin (Cipro 500mg tab) 500 mg EVERY 12 HOURS ORAL 01/28/19 12:00 02/04/19 11:59 01/29/19 08:17 Clonidine HCl (Catapres Tab) 0.1 mg EVERY 6 HOURS PRN ORAL For High Blood Pressure 01/28/19 02:15 02/27/19 02:14 Dextrose (Dextrose 50%) 25 ml Q30M PRN IV Hypoglycemia 01/28/19 08:15 02/27/19 08:14 Dextrose (Dextrose 50%) 50 ml Q30M PRN IV Hypoglycemia 01/28/19 08:15 02/27/19 08:14 Dextrose/Sodium Chloride 1,000 ml @ 60 mls/hr [id number] IV 01/28/19 02:15 02/27/19 02:14 01/28/19 17:27 Divalproex Sodium (Depakote Sprinkles) 125 mg DAILY ORAL 01/28/19 09:00 02/27/19 08:59 01/29/19 08:18 Divalproex Sodium (Depakote) 250 mg BEDTIME ORAL 01/28/19 21:00 02/27/19 20:59 01/28/19 20:55 Docusate Sodium (Colace) 100 mg DAILY ORAL 01/28/19 09:00 02/27/19 08:59 01/29/19 08:17 Gabapentin (Neurontin) 300 mg TID ORAL 01/28/19 09:00 02/27/19 08:59 01/29/19 08:17 Heparin Sodium (Porcine) (Heparin 5000 units/ml) 5,000 units EVERY 12 HOURS SUBQ 01/28/19 09:00 02/27/19 08:59 01/29/19 08:21 Lorazepam (Ativan 2mg/ml 1ml) 0.5 mg Q4H PRN IV For Anxiety 01/28/19 08:15 02/04/19 08:14 Magnesium Hydroxide (Mom) 30 ml DAILY PRN ORAL Constipation 01/28/19 02:15 02/27/19 02:14 Morphine Sulfate (Morphine Sulfate) 2 mg Q4H PRN IVP For Pain 4-6 01/28/19 08:15 02/04/19 08:14 Morphine Sulfate (Morphine Sulfate) 4 mg Q4H PRN IVP For Pain 701/28/19 08:15 02/04/19 08:14 Olanzapine (ZyPREXA) 10 mg DAILY ORAL 01/28/19 09:00 02/27/19 08:59 01/29/19 08:17 Olanzapine (ZyPREXA) 15 mg BEDTIME ORAL 01/28/19 21:00 02/27/19 20:59 Ondansetron HCl (Zofran) 4 mg Q6H PRN IVP Nausea & Vomiting 01/28/19 08:15 02/27/19 08:14 Polyethylene Glycol (Miralax) 17 gm HSPRN PRN ORAL Constipation 01/28/19 08:15 02/27/19 08:14 Sodium Phosphate (Fleet's Sodium Phosl Enema) 133 ml NEEDED PRN RECTAL Constipation 01/28/19 02:15 02/27/19 02:14 Vitamin D (Vitamin D) 2,000 intlu DAILY ORAL 01/28/19 09:00 02/27/19 08:59 01/29/19 08:17 Zolpidem Tartrate (Ambien) 5 mg HSPRN PRN ORAL Insomnia 01/28/19 08:15 02/04/19 08:14 Assessment/Plan Assessment/Plan: (1) Lumbar DDD (2) Lumbago (3) Peripheral Neuropathy Seen dictated Errol Warren January 29, 2019 12:28
[2019-01-29] MEDS: D5 1/2NS 1,000 ML IV SCH (13:17)
[2019-01-29] MEDS ORDERED: D5 1/2NS 1000ml IV ONE (15:43)
[2019-01-29 16:00] VITALS: BP 128/70
--- NOTE | 2019-01-29 16:15 | Consultation ---
DATE OF CONSULTATION: 01/29/2019 PAIN MANAGEMENT CONSULTATION REFERRING PHYSICIAN: Alexandro Albarado D.O. CONSULTING PHYSICIAN: Raza Ng M.D. PHYSICIAN CARBIDE DIE MAKER: Chandler Velázquez CHIEF COMPLAINT: Low back pain. HISTORY OF PRESENT ILLNESS: This is a 58-year-old female, who has been seen on the med/surg floor of [facility] for initial pain management consultation. The patient was admitted under the care of Dr. Albarado due to altered mental status, found to have possible UTI. She has had a complaint of lower back pain before admission. However now, the patient reports that she has no pain in her lower back. CT scan of lumbar spine was ordered showing degenerative disk disease, which was mild. She again is in bed. No signs of pain or distress. She is being seen by the neurologist due to the altered mental status and has been started on Neurontin 300 mg three times a day due to peripheral neuropathy caused by diabetes as well as morphine 2 mg IV every four hours as needed for [id number] pain and morphine 4 mg IV every four hours as needed for severe pain. However, has not requested any pain medication at this time. However, we were consulted to help the patient to have adequate pain control while here in the hospital. PAST MEDICAL HISTORY: Neuropathy, hypertension, COPD, dysphagia, diabetes, schizophrenia, bipolar, depression, anxiety, and hyperlipidemia. SOCIAL HISTORY: Denies smoking tobacco, drinking alcohol, or IV drug abuse. ALLERGIES: Penicillin. MEDICATIONS: Cogentin, Os-Eduar, vitamin D, Depakote, Colace, gabapentin, lactulose, Zyprexa, Tylenol, Dulcolax, Catapres, and milk of magnesia. REVIEW OF SYSTEMS: Denies rash, fever, chills, sweating, dizziness, drowsiness, blurred vision, sore throat, or change in weight. No shortness of breath or chest pain. No nausea, vomiting, diarrhea, blood in stool or urine. No bowel or bladder incontinence. No dysuria. She is complaining of weakness. PHYSICAL EXAMINATION: GENERAL: Alert, awake, and oriented. VITAL SIGNS: Blood pressure 101/67, heart rate 71, oxygen saturation 98%, respiratory rate 18, and temperature 98.1 degrees Fahrenheit. HEENT: PERRLA. NECK: Range of motion is full in all directions. No tenderness to paracervical muscles. No adenopathy. LUNGS: Clear bilaterally. HEART: Regular. ABDOMEN: Obese. BACK: Range of motion is decreased in flexion and extension. EXTREMITIES: Upper and lower extremity range of motion is decreased due to the patient's condition. No cyanosis. No clubbing. Sensory is intact. Reflexes are not obtainable. No adenopathy. ASSESSMENT AND PLAN: This is a 58-year-old female with lumbar degenerative disk disease and lumbago. The patient will continue on Neurontin and morphine. The patient was discussed with Dr. Ng and concurred. We will follow the patient. Thank you very much for the courtesy of this consultation. Raza Ng M.D. HANNAH Velázquez DR: Adis JOB#: [id number] CC: VENKATA
--- NOTE | 2019-01-29 18:28 | Neurology Progress Note ---
Interim History Interim History ROS Limited/Unobtainable: Yes Complaints: AMS Events: MS Unchaged Interim History This visit was conducted on January 29, [address] Dago Cunningham. Review of Systems All Systems: reviewed and negative except above Objective Physical Exam Last Vital Signs Date Time Temp Pulse Resp B/P (MAP) Pulse Ox O2 Delivery O2 Flow Rate FiO2 01/29/19 16:00 98.6 65 16 128/70 (89) 98 01/29/19 08:33 Room Air Laboratory Tests Test 01/29/19 05:58 White Blood Count 7.0 K/UL (4.8-10.8) Red Blood Count 4.27 M/UL (4.20-5.40) Hemoglobin 13.1 G/DL (12.0-16.0) Hematocrit 39.5 % (37.0-47.0) Mean Corpuscular Volume 93 FL (80-99) Mean Corpuscular Hemoglobin 30.8 PG (27.0-31.0) Mean Corpuscular Hemoglobin Concent 33.2 G/DL (32.0-36.0) Red Cell Distribution Width 13.1 % (11.6-14.8) Platelet Count 186 K/UL (150-450) Mean Platelet Volume 7.2 FL (6.5-10.1) Neutrophils (%) (Auto) 40.5 % (45.0-75.0) L Lymphocytes (%) (Auto) 45.7 % (20.0-45.0) H Monocytes (%) (Auto) 6.0 % (1.0-10.0) Eosinophils (%) (Auto) 6.4 % (0.0-3.0) H Basophils (%) (Auto) 1.5 % (0.0-2.0) Sodium Level 143 MMOL/L (136-145) Potassium Level 3.9 MMOL/L (3.5-5.1) Chloride Level 107 MMOL/L (98-107) Carbon Dioxide Level 31 MMOL/L (21-32) Anion Gap 6 mmol/L (5-15) Blood Urea Nitrogen 14 mg/dL (7-18) Creatinine 0.6 MG/DL (0.55-1.30) Estimat Glomerular Filtration Rate > 60 mL/min (>60) Glucose Level 114 MG/DL (74-106) H Calcium Level 9.0 MG/DL (8.5-10.1) Total Bilirubin 0.2 MG/DL (0.2-1.0) Aspartate Amino Transf (AST/SGOT) 15 U/L (15-37) Alanine Aminotransferase (ALT/SGPT) 25 U/L (12-78) Alkaline Phosphatase 61 U/L (46-116) Total Protein 6.6 G/DL (6.4-8.2) Albumin 3.0 G/DL (3.4-5.0) L Globulin 3.6 g/dL Albumin/Globulin Ratio 0.8 (1.0-2.7) L Thyroid Stimulating Hormone (TSH) 1.184 uiU/mL (0.358-3.740) General: well developed, well nourished Head: normocophalic Neck: no rigidity EENT: benign Neurologic Exam Mental Status: other Speech: other Cranial Nerves III, IV, : PERRLA, EOMI, pupils Cranial Nerve VII: no facial asymmetry, normal facial expressions Cranial Nerve VIII: normal hearing, no nystagmus Cranial Nerve IX: normal palate elevation, gag response Cranial Nerve XI: SCM symmetric, trapezii function normal Cranial Nerve XII: tongue midline, no tongue atrophy/fasciculations Motor System: no involuntary movement, other - Right Psoas muscle weakness/ iliapsoas atrophy- diminished strength on exam but unable to assess in depth. Sensory: normal pinprick, normal light touch, normal position sense, normal graphesthesia Deep Tendon Reflexes: 2+ bicep (L), 2+ bicep (R), 2+ tricep (L), 2+ tricep (R) , 2+ brachioradialis (L), 2+ brachioradialis (R), 2+ knee (L), 2+ knee (R), 2+ ankle (L), 2+ ankle (R) Objective Somnolent on exam, partially oriented to person and type of place she is in. She follows all commands and moves all extremities without any apparent weakness. She requires ongoing stimulus to conduct exam and maintain attention. Impression/Recommendations Problems: (1) Intractable low back pain (2) UTI (urinary tract infection) (3) Altered mental status (4) Lumbar disc disease Status: stable, unchanged Recommendations COntinue Q 4 hour neuro obs Treat with Abx as per ID/ primary team Psych consult- for schizoaffective disorder Check TSH, HgBA1c Maintain normothermia / normoglycemia Prevent Delrium with : OOB during daytime Maintain sleep hygiene at night with dark room Avoid use of benzodiazapenes, opioids, and anticholinergics. Andreea Guerrero N.P. January 29, 2019 18:28
--- NOTE | 2019-01-29 18:54 | NUR ---
HAND-OFF: Report given to
[2019-01-29 19:23] LABS: ALANINE AMINOTRANSFERASE 28 U/L (12-78); ALBUMIN 3.2 G/DL (3.4-5.0); ALKALINE PHOSPHATASE 68 U/L (46-116); ANION GAP 8 mmol/L (5-15); ASPARTATE AMINO TRANSFERASE 16 U/L (15-37); BILIRUBIN,TOTAL 0.2 MG/DL (0.2-1.0); BLOOD UREA NITROGEN 8 mg/dL (7-18); CALCIUM 9.3 MG/DL (8.5-10.1); CARBON DIOXIDE 30 MMOL/L (21-32); CHLORIDE 105 MMOL/L (98-107); CREATININE 0.6 MG/DL (0.55-1.30); SODIUM 143 MMOL/L (136-145)
--- NOTE | 2019-01-29 19:48 | NUR ---
NURSE NOTES: Received patient awake,verbal,follows simple command,resting in bed,comfortable.
[2019-01-29 20:05] VITALS: BP 129/68
--- NOTE | 2019-01-29 20:59 | Physician Query ---
Clarification is required for compliance, coding accuracy, and to reflect severity of illness for this patient Dear Dr. Albarado Date: 01/29/2019 CDS: Kaz Rangel Please click EDIT and place X in appropriate box "Altered Mental Status" documented in medical records. Patient is admitted with UTI. Please indicate the nature and chronicity of the condition below: [ ] Metabolic Encephalopathy [ ] Toxic Encephalopathy [ ] Toxic - Metabolic Encephalopathy [ ] Encephalopathy, Other [ ] Other: [ ] Not Applicable Present on Admission: [ ] Yes [ ] No [ ] Clinically Undetermined Physician signature Date Please also document in your Progress Notes and/or Discharge Summary and indicate if the condition was present on admission. VENKATA
[2019-01-30] VITALS: BP 124/63
[2019-01-30 04:00] VITALS: BP 131/66
[2019-01-30] MEDS: D5 1/2NS 1,000 ML IV SCH ×2 (04:15→21:30)
[2019-01-30 05:58] LABS: BASOPHILS % (AUTO) 1.5 % (0.0-2.0); EOSINOPHILS % (AUTO) 5.1 % (0.0-3.0); HEMATOCRIT 41.7 % (37.0-47.0); HEMOGLOBIN 13.5 G/DL (12.0-16.0); LYMPHOCYTES % (AUTO) 36.5 % (20.0-45.0); MEAN CORPUSCULAR VOLUME 92 FL (80-99); MONOCYTES % (AUTO) 5.5 % (1.0-10.0); NEUTROPHILS % (AUTO) 51.5 % (45.0-75.0); PLATELET COUNT 198 K/UL (150-450); RED BLOOD COUNT 4.53 M/UL (4.20-5.40); RED CELL DISTRIBUTION WIDTH 12.9 % (11.6-14.8); WHITE BLOOD COUNT 8.5 K/UL (4.8-10.8)
[2019-01-30 06:17] LABS: ANION GAP 7 mmol/L (5-15); BLOOD UREA NITROGEN 12 mg/dL (7-18); CALCIUM 9.1 MG/DL (8.5-10.1); CARBON DIOXIDE 30 MMOL/L (21-32); CHLORIDE 105 MMOL/L (98-107); CREATININE 0.6 MG/DL (0.55-1.30); POTASSIUM 3.8 MMOL/L (3.5-5.1); SODIUM 142 MMOL/L (136-145)
--- NOTE | 2019-01-30 07:58 | NUR ---
NURSE NOTES: Patient received resting in bed, eating breakfast. Breathing unlabored, denies pain or SOB at this time. Purewick in place. IV site on right hand patent and intact. running fluids at 60cc/hr. Bed alarm is on. Bed locked in lowest position, call light placed within reach. Will continue to monitor.
[2019-01-30 08:00] VITALS: BP 142/73
--- NOTE | 2019-01-30 08:45 | General Progress Note ---
Assessment/Plan Assessment/Plan: (1) Lumbar DDD (2) Lumbago (3) Peripheral Neuropathy Patient to be continued on Morphine as needed. D/w Dr. Ng and he concurred. Subjective Date patient seen: January 30, 2019 Time patient seen: 07:15 - am Allergies: Coded Allergies: PENICILLINS (Verified Allergy, Unknown, 01/27/19) Uncoded Allergies: EGGS (Allergy, Unknown, 01/27/19) Subjective REVIEW OF SYSTEMS: Denies rash, fever, chills, sweating, dizziness, drowsiness, blurred vision, sore throat, or change in weight. No shortness of breath or chest pain. No nausea, vomiting, diarrhea, blood in stool or urine. No bowel or bladder incontinence. No dysuria. She is complaining of weakness. SUBJECTIVE: She is in bed showing no signs of pain or distress. Denies pain at this time. Looking forward to PT. Objective Last 24 Hour Vital Signs Date Time Temp Pulse Resp B/P (MAP) Pulse Ox O2 Delivery O2 Flow Rate FiO2 01/30/19 08:00 98.6 97 19 142/73 (96) 96 01/30/19 04:00 98.1 80 18 131/66 (87) 96 01/30/19 00:00 98.3 70 18 124/63 (83) 95 01/29/19 20:18 Room Air 01/29/19 20:05 96.5 76 19 129/68 (88) 96 01/29/19 16:00 98.6 65 16 128/70 (89) 98 01/29/19 12:00 98.1 71 18 101/57 (72) 98 Intake and Output 01/29/19 01/30/19 19:00 07:00 Intake Total 1040 ml 660 ml Output Total 800 ml 1000 ml Balance 240 ml -340 ml Intake Oral 680 ml IV Total 360 ml 660 ml Output Urine Total 800 ml 1000 ml # Voids 3 Laboratory Tests 01/29/19 19:00: Sodium Level 143, Potassium Level 4.0, Chloride Level 105, Carbon Dioxide Level 30, Anion Gap 8, Blood Urea Nitrogen 8, Creatinine 0.6, Estimat Glomerular Filtration Rate > 60, Glucose Level 162H, Calcium Level 9.3, Total Bilirubin 0.2 , Aspartate Amino Transf (AST/SGOT) 16, Alanine Aminotransferase (ALT/SGPT) 28, Alkaline Phosphatase 68, Total Protein 6.5, Albumin 3.2L, Globulin 3.3, Albumin/ Globulin Ratio 1.0 01/30/19 05:10: Sodium Level 142, Potassium Level 3.8, Chloride Level 105, Carbon Dioxide Level 30, Anion Gap 7, Blood Urea Nitrogen 12, Creatinine 0.6, Estimat Glomerular Filtration Rate > 60, Glucose Level 115H, Calcium Level 9.1, White Blood Count 8.5, Red Blood Count 4.53, Hemoglobin 13.5, Hematocrit 41.7, Mean Corpuscular Volume 92, Mean Corpuscular Hemoglobin 29.8, Mean Corpuscular Hemoglobin Concent 32.4, Red Cell Distribution Width 12.9, Platelet Count 198, Mean Platelet Volume 6.2L, Neutrophils (%) (Auto) 51.5, Lymphocytes (%) (Auto) 36.5, Monocytes (%) (Auto) 5.5, Eosinophils (%) (Auto) 5.1H, Basophils (%) (Auto) 1.5 Height (Feet): 5 Height (Inches): 4.00 Weight (Pounds): 199 Objective GENERAL: Alert, awake, and oriented. LUNGS: Clear bilaterally. HEART: S1 S2 Regular. ABDOMEN: Obese. EXTREMITIES: No cyanosis. No clubbing. NEURO: No changes. Errol Warren January 30, 2019 08:45
[2019-01-30] MEDS: Ciprofloxacin 500mg tab ORAL SCH ×2 (08:51→21:31)
[2019-01-30] MEDS: Docusate 100mg cap ORAL SCH (08:52)
[2019-01-30] MEDS: Benztropine 1mg tab ORAL SCH ×2 (08:52→16:55)
[2019-01-30] MEDS: Calcium Carbonate 500mg w/Vit D 200iu tab ORAL SCH (08:52)
[2019-01-30] MEDS: Depakote 125mg Sprinkles ORAL SCH (08:52)
[2019-01-30] MEDS: Vitamin D 1000 IU Tab ORAL SCH (08:52)
[2019-01-30] MEDS: OLANZapine 10mg tab ORAL SCH ×2 (08:52→21:31)
[2019-01-30] MEDS: Heparin 5000 units/ml inj SUBQ SCH ×2 (08:58→21:33)
--- NOTE | 2019-01-30 11:19 | Diagnostic Imaging Report ---
Indication:Elevated Bun and Creatinine. Technique: Grayscale and duplex Doppler imaging of the kidneys performed. Comparison: None Findings: The size, contour, and echogenicity of both kidneys are within normal limits. Right kidney is 11.8 cm. Left kidney 11.2 cm There is no hydronephrosis. The IVC and urinary bladder are unremarkable. IMPRESSION: Negative examination. Significant limitations on this exam due to large body habitus
[2019-01-30 11:57] VITALS: BP 132/79
--- NOTE | 2019-01-30 12:07 | General Progress Note ---
Assessment/Plan Problem List: (1) UTI (urinary tract infection) ICD Codes: N39.0 - Urinary tract infection, site not specified SNOMED: 81670609 (2) Lumbar disc disease ICD Codes: M51.9 - Unspecified thoracic, thoracolumbar and lumbosacral intervertebral disc disorder SNOMED: 944842185 (3) Intractable low back pain ICD Codes: M54.5 - Low back pain SNOMED: 75272943077541449 (4) Altered mental status ICD Codes: R41.82 - Altered mental status, unspecified SNOMED: 420345751 Qualifiers: Qualified Codes: R40.0 - Somnolence Status: stable, progressing Assessment/Plan: sbx per id, pt diet eval psyc neuro eval cbc bmp am dc plan Subjective Constitutional: Reports: weakness Allergies: Coded Allergies: PENICILLINS (Verified Allergy, Unknown, 01/27/19) Uncoded Allergies: EGGS (Allergy, Unknown, 01/27/19) All Systems: reviewed and negative except above Subjective sl confused Objective Last 24 Hour Vital Signs Date Time Temp Pulse Resp B/P (MAP) Pulse Ox O2 Delivery O2 Flow Rate FiO2 01/30/19 11:57 98.1 87 18 132/79 (96) 96 01/30/19 09:00 Room Air 01/30/19 08:00 98.6 97 19 142/73 (96) 96 01/30/19 04:00 98.1 80 18 131/66 (87) 96 01/30/19 00:00 98.3 70 18 124/63 (83) 95 01/29/19 20:18 Room Air 01/29/19 20:05 96.5 76 19 129/68 (88) 96 01/29/19 16:00 98.6 65 16 128/70 (89) 98 Intake and Output 01/29/19 01/30/19 19:00 07:00 Intake Total 1040 ml 660 ml Output Total 800 ml 1000 ml Balance 240 ml -340 ml Intake Oral 680 ml IV Total 360 ml 660 ml Output Urine Total 800 ml 1000 ml # Voids 3 Laboratory Tests 01/29/19 19:00: Sodium Level 143, Potassium Level 4.0, Chloride Level 105, Carbon Dioxide Level 30, Anion Gap 8, Blood Urea Nitrogen 8, Creatinine 0.6, Estimat Glomerular Filtration Rate > 60, Glucose Level 162H, Calcium Level 9.3, Total Bilirubin 0.2 , Aspartate Amino Transf (AST/SGOT) 16, Alanine Aminotransferase (ALT/SGPT) 28, Alkaline Phosphatase 68, Total Protein 6.5, Albumin 3.2L, Globulin 3.3, Albumin/ Globulin Ratio 1.0 01/30/19 05:10: Sodium Level 142, Potassium Level 3.8, Chloride Level 105, Carbon Dioxide Level 30, Anion Gap 7, Blood Urea Nitrogen 12, Creatinine 0.6, Estimat Glomerular Filtration Rate > 60, Glucose Level 115H, Calcium Level 9.1, White Blood Count 8.5, Red Blood Count 4.53, Hemoglobin 13.5, Hematocrit 41.7, Mean Corpuscular Volume 92, Mean Corpuscular Hemoglobin 29.8, Mean Corpuscular Hemoglobin Concent 32.4, Red Cell Distribution Width 12.9, Platelet Count 198, Mean Platelet Volume 6.2L, Neutrophils (%) (Auto) 51.5, Lymphocytes (%) (Auto) 36.5, Monocytes (%) (Auto) 5.5, Eosinophils (%) (Auto) 5.1H, Basophils (%) (Auto) 1.5 Height (Feet): 5 Height (Inches): 4.00 Weight (Pounds): 199 General Appearance: lethargic, confused EENT: normal ENT inspection Neck: normal alignment Cardiovascular: normal peripheral pulses, normal rate, regular rhythm Respiratory/Chest: chest wall non-tender, lungs clear, normal breath sounds Abdomen: normal bowel sounds, non tender, soft Extremities: normal inspection Edema: no edema noted Arm (L), no edema noted Arm (R), no edema noted Leg (L), no edema noted Leg (R), no edema noted Pedal (L), no edema noted Pedal (R), no edema noted Generalized Neurologic: motor weakness Skin: normal pigmentation, warm/dry Alexandro Albarado DO January 30, 2019 12:07
--- NOTE | 2019-01-30 14:15 | History and Physical Report ---
DATE OF ADMISSION: 01/27/2019 TIME SEEN: 9 a.m. CONSULTANTS: 1. Deny Gan M.D. 2. Raza Ng M.D. 3. Dago Cunningham M.D. 4. Hiram Gamez M.D. CHIEF COMPLAINT: Altered mental status and low back pain. BRIEF HISTORY: This is a 58-year-old female from [facility], presented with above-mentioned diagnosis intractable low back pain. No history of trauma. The patient admitted for above. Currently, slightly confused in bed, not talking. No complaint. REVIEW OF SYSTEMS: No chest pain. No 00:28. No nausea, vomiting, or diarrhea. PAST MEDICAL HISTORY: Include altered mental status and low back pain. PAST SURGICAL HISTORY: Abdominal surgery. MEDICATIONS: Include 01:06, olanzapine, docusate sodium, gabapentin, heparin, morphine, Zofran, bisacodyl 01:17. ALLERGIES: Penicillin. SOCIAL HISTORY: Positive smoking. No alcohol. No intravenous drug abuse. FAMILY HISTORY: Noncontributory. PHYSICAL EXAMINATION: GENERAL: Calm in bed, oriented x2, in no acute distress. VITAL SIGNS: Temperature is 97 degrees, pulse 00:44, respirations 16, and blood pressure 104/73. CARDIOVASCULAR: No murmur. LUNGS: Distant and clear. ABDOMEN: Bowel sounds positive. Nontender. Nondistended. EXTREMITIES: No cyanosis, clubbing, or edema. NEUROLOGIC: The patient moves all extremities, slightly weak. LABORATORY DATA: Laboratories at this time show CBC is normal. BMP show glucose 131, otherwise normal. Urinalysis, 5+ blood, 1+ leukocyte esterase. ASSESSMENT: 1. Altered mental status. 2. Low back pain. 3. UTI. PLAN: 1. Antibiotics per Infectious Disease. 2. PT and dietary evaluation. 3. CBC and BMP in the morning. 4. Resume home medications. 5. We will continue to follow this patient. 6. ID and Psych evaluation as well. Alexandro Albarado D.O. DR: BART JOB#: [id number] CC:
--- NOTE | 2019-01-30 14:19 | Pulmonology Progress Note ---
Assessment/Plan Problems: (1) Acute encephalopathy (2) UTI (urinary tract infection) (3) Intractable low back pain (4) Lumbar disc disease Assessment/Plan symptomatic treatment pain management all reviewed medication reviewed dvt prophylaxis. continue same regiment dc planning Subjective ROS Limited/Unobtainable: Yes Interval Events: looks comfortable Allergies: Coded Allergies: PENICILLINS (Verified Allergy, Unknown, 01/27/19) Uncoded Allergies: EGGS (Allergy, Unknown, 01/27/19) Objective Last 24 Hour Vital Signs Date Time Temp Pulse Resp B/P (MAP) Pulse Ox O2 Delivery O2 Flow Rate FiO2 01/30/19 11:57 98.1 87 18 132/79 (96) 96 01/30/19 09:00 Room Air 01/30/19 08:00 98.6 97 19 142/73 (96) 96 01/30/19 04:00 98.1 80 18 131/66 (87) 96 01/30/19 00:00 98.3 70 18 124/63 (83) 95 01/29/19 20:18 Room Air 01/29/19 20:05 96.5 76 19 129/68 (88) 96 01/29/19 16:00 98.6 65 16 128/70 (89) 98 Intake and Output 01/29/19 01/30/19 19:00 07:00 Intake Total 1040 ml 660 ml Output Total 800 ml 1000 ml Balance 240 ml -340 ml Intake Oral 680 ml IV Total 360 ml 660 ml Output Urine Total 800 ml 1000 ml # Voids 3 General Appearance: WD/WN HEENT: normocephalic, atraumatic Cardiovascular: normal peripheral pulses, normal rate Abdomen: normal bowel sounds, no organomegaly Extremities: no cyanosis Skin: no lesions Microbiology Date/Time Source Procedure Growth Status 01/27/19 21:03 Nasal Nares MRSA Culture - Final NO METHICILLIN RESISTANT STAPH AUREUS... Complete 01/28/19 19:30 Urine,Clean Catch Urine Culture - Preliminary Mixed Urogenital Contaminants Resulted 01/27/19 21:03 Rectum VRE Culture - Final NO VANCOMYCIN RESISTANT ENTEROCOCCUS ... Complete Laboratory Tests 01/29/19 19:00: Sodium Level 143, Potassium Level 4.0, Chloride Level 105, Carbon Dioxide Level 30, Anion Gap 8, Blood Urea Nitrogen 8, Creatinine 0.6, Estimat Glomerular Filtration Rate > 60, Glucose Level 162H, Calcium Level 9.3, Total Bilirubin 0.2 , Aspartate Amino Transf (AST/SGOT) 16, Alanine Aminotransferase (ALT/SGPT) 28, Alkaline Phosphatase 68, Total Protein 6.5, Albumin 3.2L, Globulin 3.3, Albumin/ Globulin Ratio 1.0 01/30/19 05:10: Sodium Level 142, Potassium Level 3.8, Chloride Level 105, Carbon Dioxide Level 30, Anion Gap 7, Blood Urea Nitrogen 12, Creatinine 0.6, Estimat Glomerular Filtration Rate > 60, Glucose Level 115H, Calcium Level 9.1, White Blood Count 8.5, Red Blood Count 4.53, Hemoglobin 13.5, Hematocrit 41.7, Mean Corpuscular Volume 92, Mean Corpuscular Hemoglobin 29.8, Mean Corpuscular Hemoglobin Concent 32.4, Red Cell Distribution Width 12.9, Platelet Count 198, Mean Platelet Volume 6.2L, Neutrophils (%) (Auto) 51.5, Lymphocytes (%) (Auto) 36.5, Monocytes (%) (Auto) 5.5, Eosinophils (%) (Auto) 5.1H, Basophils (%) (Auto) 1.5 Current Medications Medications (Trade) Dose Ordered Sig/Servando Route PRN Reason Start Time Stop Time Status Last Admin Dose Admin Acetaminophen (Tylenol) 650 mg Q4H PRN ORAL fever 01/28/19 08:15 02/27/19 08:14 Acetaminophen (Tylenol) 650 mg Q6HR PRN ORAL Mild Pain (Pain Scale 1-3) 01/28/19 02:15 02/27/19 02:14 Al Hydroxide/Mg Hydroxide (Mylanta II) 30 ml Q4HR PRN ORAL GI DISTRESS 01/28/19 02:15 02/27/19 02:14 Benztropine Mesylate (Cogentin) 1 mg BID ORAL 01/28/19 09:00 02/27/19 08:59 01/30/19 08:52 Bisacodyl (Dulcolax) 10 mg NEEDED PRN RECTAL Constipation 01/28/19 02:15 02/27/19 02:14 Calcium Carbonate (OsCal D) 1 tab DAILY ORAL 01/28/19 09:00 02/27/19 08:59 01/30/19 08:52 Ciprofloxacin (Cipro 500mg tab) 500 mg EVERY 12 HOURS ORAL 01/28/19 12:00 02/04/19 11:59 01/30/19 08:51 Clonidine HCl (Catapres Tab) 0.1 mg EVERY 6 HOURS PRN ORAL For High Blood Pressure 01/28/19 02:15 02/27/19 02:14 Dextrose (Dextrose 50%) 25 ml Q30M PRN IV Hypoglycemia 01/28/19 08:15 02/27/19 08:14 Dextrose (Dextrose 50%) 50 ml Q30M PRN IV Hypoglycemia 01/28/19 08:15 02/27/19 08:14 Dextrose/Sodium Chloride 1,000 ml @ 60 mls/hr [id number] IV 01/28/19 02:15 02/27/19 02:14 01/29/19 13:17 Divalproex Sodium (Depakote Sprinkles) 125 mg DAILY ORAL 01/28/19 09:00 02/27/19 08:59 01/30/19 08:52 Divalproex Sodium (Depakote) 250 mg BEDTIME ORAL 01/28/19 21:00 02/27/19 20:59 01/29/19 20:49 Docusate Sodium (Colace) 100 mg DAILY ORAL 01/28/19 09:00 02/27/19 08:59 01/30/19 08:52 Gabapentin (Neurontin) 300 mg TID ORAL 01/28/19 09:00 02/27/19 08:59 01/30/19 12:28 Heparin Sodium (Porcine) (Heparin 5000 units/ml) 5,000 units EVERY 12 HOURS SUBQ 01/28/19 09:00 02/27/19 08:59 01/30/19 08:58 Lorazepam (Ativan 2mg/ml 1ml) 0.5 mg Q4H PRN IV For Anxiety 01/28/19 08:15 02/04/19 08:14 Magnesium Hydroxide (Mom) 30 ml DAILY PRN ORAL Constipation 01/28/19 02:15 02/27/19 02:14 Morphine Sulfate (Morphine Sulfate) 2 mg Q4H PRN IVP For Pain 4-6 01/28/19 08:15 02/04/19 08:14 Morphine Sulfate (Morphine Sulfate) 4 mg Q4H PRN IVP For Pain 7-10 01/28/19 08:15 02/04/19 08:14 Olanzapine (ZyPREXA) 10 mg DAILY ORAL 01/28/19 09:00 02/27/19 08:59 01/30/19 08:52 Olanzapine (ZyPREXA) 15 mg BEDTIME ORAL 01/28/19 21:00 02/27/19 20:59 01/29/19 20:49 Ondansetron HCl (Zofran) 4 mg Q6H PRN IVP Nausea & Vomiting 01/28/19 08:15 02/27/19 08:14 Polyethylene Glycol (Miralax) 17 gm HSPRN PRN ORAL Constipation 01/28/19 08:15 02/27/19 08:14 Sodium Phosphate (Fleet's Sodium Phosl Enema) 133 ml NEEDED PRN RECTAL Constipation 01/28/19 02:15 02/27/19 02:14 Vitamin D (Vitamin D) 2,000 intlu DAILY ORAL 01/28/19 09:00 02/27/19 08:59 01/30/19 08:52 Zolpidem Tartrate (Ambien) 5 mg HSPRN PRN ORAL Insomnia 01/28/19 08:15 02/04/19 08:14 Deny Gan MD January 30, 2019 14:19
[2019-01-30 15:56] VITALS: BP 131/79
--- NOTE | 2019-01-30 18:29 | Infectious Diseases Prog Note ---
Assessment/Plan Assessment/Plan ASSESSMENT: 1. Dysuria/microscopic hematuria, probable cystitis. -u/a no pyuria, leuk est +1; ucx MIXED UROGENITAL CONTAMINANTS COLONY COUNT: 10,000 - 20,000 CFU/ML -REnal US: Negative examination. Significant limitations on this exam due to large body habitus 2. Afebrile. 3. Normal white blood cell count. CT L Spine: Mild degenerative disc disease. Right psoas and iliopsoas muscle atrophy. - Neuropathy. - Hypertension. - COPD. - Dysphagia. -Diabetes. -. Schizophrenia. - Bipolar disorder. - Depression/anxiety. - Hyperlipidemia. PLAN: 1. Cont patient on Cipro #3/3 2. We will send urine culture. 3. We will monitor CBC and BMP. 4. Based on the patient's clinical course and labs, we will do further recommendations. Thank you, Dr. Alexandro Albarado, for allowing me to participate in the care of this patient. I will follow the patient with you during this admission. Subjective Allergies: Coded Allergies: PENICILLINS (Verified Allergy, Unknown, 01/27/19) Uncoded Allergies: EGGS (Allergy, Unknown, 01/27/19) Subjective afebrile no leukocytosis Objective Vital Signs Last 24 Hour Vital Signs Date Time Temp Pulse Resp B/P (MAP) Pulse Ox O2 Delivery O2 Flow Rate FiO2 01/30/19 15:56 98.1 80 18 131/79 (96) 97 01/30/19 11:57 98.1 87 18 132/79 (96) 96 01/30/19 09:00 Room Air 01/30/19 08:00 98.6 97 19 142/73 (96) 96 01/30/19 04:00 98.1 80 18 131/66 (87) 96 01/30/19 00:00 98.3 70 18 124/63 (83) 95 01/29/19 20:18 Room Air 01/29/19 20:05 96.5 76 19 129/68 (88) 96 Height (Feet): 5 Height (Inches): 4.00 Weight (Pounds): 199 Objective HEENT: No pale conjunctivae. No scleral icterus. NECK: No lymphadenopathy. CHEST: Clear. HEART: S1 and S2. ABDOMEN: Soft, obese, nontender. No flank tenderness. EXTREMITIES: No cyanosis at this time. NEUROLOGIC: Awake. Microbiology Date/Time Source Procedure Growth Status 01/27/19 21:03 Nasal Nares MRSA Culture - Final NO METHICILLIN RESISTANT STAPH AUREUS... Complete 01/28/19 19:30 Urine,Clean Catch Urine Culture - Preliminary Mixed Urogenital Contaminants Resulted 01/27/19 21:03 Rectum VRE Culture - Final NO VANCOMYCIN RESISTANT ENTEROCOCCUS ... Complete Laboratory Tests Test 01/29/19 19:00 01/30/19 05:10 Sodium Level 143 MMOL/L (136-145) 142 MMOL/L (136-145) Potassium Level 4.0 MMOL/L (3.5-5.1) 3.8 MMOL/L (3.5-5.1) Chloride Level 105 MMOL/L (98-107) 105 MMOL/L (98-107) Carbon Dioxide Level 30 MMOL/L (21-32) 30 MMOL/L (21-32) Anion Gap 8 mmol/L (5-15) 7 mmol/L (5-15) Blood Urea Nitrogen 8 mg/dL (7-18) 12 mg/dL (7-18) Creatinine 0.6 MG/DL (0.55-1.30) 0.6 MG/DL (0.55-1.30) Estimat Glomerular Filtration Rate > 60 mL/min (>60) > 60 mL/min (>60) Glucose Level 162 MG/DL (74-106) H 115 MG/DL (74-106) H Calcium Level 9.3 MG/DL (8.5-10.1) 9.1 MG/DL (8.5-10.1) Total Bilirubin 0.2 MG/DL (0.2-1.0) Aspartate Amino Transf (AST/SGOT) 16 U/L (15-37) Alanine Aminotransferase (ALT/SGPT) 28 U/L (12-78) Alkaline Phosphatase 68 U/L (46-116) Total Protein 6.5 G/DL (6.4-8.2) Albumin 3.2 G/DL (3.4-5.0) L Globulin 3.3 g/dL Albumin/Globulin Ratio 1.0 (1.0-2.7) White Blood Count 8.5 K/UL (4.8-10.8) Red Blood Count 4.53 M/UL (4.20-5.40) Hemoglobin 13.5 G/DL (12.0-16.0) Hematocrit 41.7 % (37.0-47.0) Mean Corpuscular Volume 92 FL (80-99) Mean Corpuscular Hemoglobin 29.8 PG (27.0-31.0) Mean Corpuscular Hemoglobin Concent 32.4 G/DL (32.0-36.0) Red Cell Distribution Width 12.9 % (11.6-14.8) Platelet Count 198 K/UL (150-450) Mean Platelet Volume 6.2 FL (6.5-10.1) L Neutrophils (%) (Auto) 51.5 % (45.0-75.0) Lymphocytes (%) (Auto) 36.5 % (20.0-45.0) Monocytes (%) (Auto) 5.5 % (1.0-10.0) Eosinophils (%) (Auto) 5.1 % (0.0-3.0) H Basophils (%) (Auto) 1.5 % (0.0-2.0) Current Medications Medications (Trade) Dose Ordered Sig/Servando Route PRN Reason Start Time Stop Time Status Last Admin Dose Admin Acetaminophen (Tylenol) 650 mg Q4H PRN ORAL fever 01/28/19 08:15 02/27/19 08:14 Acetaminophen (Tylenol) 650 mg Q6HR PRN ORAL Mild Pain (Pain Scale 1-3) 01/28/19 02:15 02/27/19 02:14 Al Hydroxide/Mg Hydroxide (Mylanta II) 30 ml Q4HR PRN ORAL GI DISTRESS 01/28/19 02:15 02/27/19 02:14 Benztropine Mesylate (Cogentin) 1 mg BID ORAL 01/28/19 09:00 02/27/19 08:59 01/30/19 16:55 Bisacodyl (Dulcolax) 10 mg NEEDED PRN RECTAL Constipation 01/28/19 02:15 02/27/19 02:14 Calcium Carbonate (OsCal D) 1 tab DAILY ORAL 01/28/19 09:00 02/27/19 08:59 01/30/19 08:52 Ciprofloxacin (Cipro 500mg tab) 500 mg EVERY 12 HOURS ORAL 01/28/19 12:00 02/04/19 11:59 01/30/19 08:51 Clonidine HCl (Catapres Tab) 0.1 mg EVERY 6 HOURS PRN ORAL For High Blood Pressure 01/28/19 02:15 02/27/19 02:14 Dextrose (Dextrose 50%) 25 ml Q30M PRN IV Hypoglycemia 01/28/19 08:15 02/27/19 08:14 Dextrose (Dextrose 50%) 50 ml Q30M PRN IV Hypoglycemia 01/28/19 08:15 02/27/19 08:14 Dextrose/Sodium Chloride 1,000 ml @ 60 mls/hr [id number] IV 01/28/19 02:15 02/27/19 02:14 01/29/19 13:17 Divalproex Sodium (Depakote Sprinkles) 125 mg DAILY ORAL 01/28/19 09:00 02/27/19 08:59 01/30/19 08:52 Divalproex Sodium (Depakote) 250 mg BEDTIME ORAL 01/28/19 21:00 02/27/19 20:59 01/29/19 20:49 Docusate Sodium (Colace) 100 mg DAILY ORAL 01/28/19 09:00 02/27/19 08:59 01/30/19 08:52 Gabapentin (Neurontin) 300 mg TID ORAL 01/28/19 09:00 02/27/19 08:59 01/30/19 16:54 Heparin Sodium (Porcine) (Heparin 5000 units/ml) 5,000 units EVERY 12 HOURS SUBQ 01/28/19 09:00 02/27/19 08:59 01/30/19 08:58 Lorazepam (Ativan 2mg/ml 1ml) 0.5 mg Q4H PRN IV For Anxiety 01/28/19 08:15 02/04/19 08:14 Magnesium Hydroxide (Mom) 30 ml DAILY PRN ORAL Constipation 01/28/19 02:15 02/27/19 02:14 Morphine Sulfate (Morphine Sulfate) 2 mg Q4H PRN IVP For Pain 4-6 01/28/19 08:15 02/04/19 08:14 Morphine Sulfate (Morphine Sulfate) 4 mg Q4H PRN IVP For Pain 7-10 01/28/19 08:15 02/04/19 08:14 Olanzapine (ZyPREXA) 10 mg DAILY ORAL 01/28/19 09:00 02/27/19 08:59 01/30/19 08:52 Olanzapine (ZyPREXA) 15 mg BEDTIME ORAL 01/28/19 21:00 02/27/19 20:59 01/29/19 20:49 Ondansetron HCl (Zofran) 4 mg Q6H PRN IVP Nausea & Vomiting 01/28/19 08:15 02/27/19 08:14 Polyethylene Glycol (Miralax) 17 gm HSPRN PRN ORAL Constipation 01/28/19 08:15 02/27/19 08:14 Sodium Phosphate (Fleet's Sodium Phosl Enema) 133 ml NEEDED PRN RECTAL Constipation 01/28/19 02:15 02/27/19 02:14 Vitamin D (Vitamin D) 2,000 intlu DAILY ORAL 01/28/19 09:00 02/27/19 08:59 01/30/19 08:52 Zolpidem Tartrate (Ambien) 5 mg HSPRN PRN ORAL Insomnia 01/28/19 08:15 02/04/19 08:14 Zena Philip M.D. January 30, 2019 18:29
--- NOTE | 2019-01-30 19:07 | Neurology Progress Note ---
Interim History Interim History ROS Limited/Unobtainable: Yes Complaints: AMS Events: Significantly more alert today Review of Systems All Systems: reviewed and negative except above Objective Physical Exam Last Vital Signs Date Time Temp Pulse Resp B/P (MAP) Pulse Ox O2 Delivery O2 Flow Rate FiO2 01/30/19 15:56 98.1 80 18 131/79 (96) 97 01/30/19 09:00 Room Air Laboratory Tests Test 01/30/19 05:10 White Blood Count 8.5 K/UL (4.8-10.8) Red Blood Count 4.53 M/UL (4.20-5.40) Hemoglobin 13.5 G/DL (12.0-16.0) Hematocrit 41.7 % (37.0-47.0) Mean Corpuscular Volume 92 FL (80-99) Mean Corpuscular Hemoglobin 29.8 PG (27.0-31.0) Mean Corpuscular Hemoglobin Concent 32.4 G/DL (32.0-36.0) Red Cell Distribution Width 12.9 % (11.6-14.8) Platelet Count 198 K/UL (150-450) Mean Platelet Volume 6.2 FL (6.5-10.1) L Neutrophils (%) (Auto) 51.5 % (45.0-75.0) Lymphocytes (%) (Auto) 36.5 % (20.0-45.0) Monocytes (%) (Auto) 5.5 % (1.0-10.0) Eosinophils (%) (Auto) 5.1 % (0.0-3.0) H Basophils (%) (Auto) 1.5 % (0.0-2.0) Sodium Level 142 MMOL/L (136-145) Potassium Level 3.8 MMOL/L (3.5-5.1) Chloride Level 105 MMOL/L (98-107) Carbon Dioxide Level 30 MMOL/L (21-32) Anion Gap 7 mmol/L (5-15) Blood Urea Nitrogen 12 mg/dL (7-18) Creatinine 0.6 MG/DL (0.55-1.30) Estimat Glomerular Filtration Rate > 60 mL/min (>60) Glucose Level 115 MG/DL (74-106) H Calcium Level 9.1 MG/DL (8.5-10.1) General: well developed, well nourished Head: normocophalic Neck: no rigidity EENT: benign Neurologic Exam Mental Status: awake, alert, oriented x4 Speech: other - Still with some dysarthria but no focal weakness and much more interactive / appropriate in eye contact and speech today. Cranial Nerves III, IV, : PERRLA, EOMI, pupils Cranial Nerve VII: no facial asymmetry, normal facial expressions Cranial Nerve VIII: normal hearing, no nystagmus Cranial Nerve IX: normal palate elevation, gag response Cranial Nerve X: no voice hoarseness Cranial Nerve XI: SCM symmetric, trapezii function normal Cranial Nerve XII: tongue midline, no tongue atrophy/fasciculations Motor System: normal muscle tone, strength 5/5, no involuntary movement, no muscle wasting, other - Right Psoas muscle weakness/ iliapsoas atrophy- diminished strength on exam but unable to assess in depth. Sensory: normal pinprick, normal light touch, normal position sense, normal graphesthesia Deep Tendon Reflexes: 2+ bicep (L), 2+ bicep (R), 2+ tricep (L), 2+ tricep (R) , 2+ brachioradialis (L), 2+ brachioradialis (R), 2+ knee (L), 2+ knee (R), 2+ ankle (L), 2+ ankle (R) Impression/Recommendations Problems: (1) Intractable low back pain (2) UTI (urinary tract infection) (3) Altered mental status (4) Lumbar disc disease Status: stable, progressing Recommendations COntinue Q 4 hour neuro obs TSH was normal Treat with Abx as per ID/ primary team Psych consult- for schizoaffective disorder Check HgBA1c Maintain normothermia / normoglycemia Prevent Delrium with : OOB during daytime Maintain sleep hygiene at night with dark room Avoid use of benzodiazapenes, opioids, and anticholinergics. Andreea Guerrero N.P. January 30, 2019 19:07
--- NOTE | 2019-01-30 19:31 | NUR ---
HAND-OFF: Report given to Ceci CASEY. Addendum: 01/30/19 at 1933 by Sindy Fermin RN HAND-OFF: Report given to Chapo CASEY.
--- NOTE | 2019-01-30 19:45 | NUR ---
NURSE NOTES: Pt is in bed, awake and verbal. Pt has a muffled speech. No acute distress noted. No SOB. Bed locked low in position,side rails up and call light within reach. Bed alarm on. Fall precaution implemented. Pt will be monitored.
[2019-01-30 20:00] VITALS: BP 114/63
[2019-01-31] VITALS: BP 110/71
--- NOTE | 2019-01-31 02:45 | NUR ---
NURSE NOTES: Pt is in bed, asleep. No acute distress noted.
[2019-01-31 04:00] VITALS: BP 128/76
--- NOTE | 2019-01-31 05:00 | NUR ---
NURSE NOTES: Pt was cleaned, turned and bed linen changed.
[2019-01-31 06:46] LABS: ANION GAP 7 mmol/L (5-15); BLOOD UREA NITROGEN 14 mg/dL (7-18); CALCIUM 9.1 MG/DL (8.5-10.1); CARBON DIOXIDE 30 MMOL/L (21-32); CHLORIDE 106 MMOL/L (98-107); CREATININE 0.6 MG/DL (0.55-1.30); POTASSIUM 3.8 MMOL/L (3.5-5.1); SODIUM 143 MMOL/L (136-145)
[2019-01-31 06:47] LABS: BASOPHILS % (AUTO) 1.5 % (0.0-2.0); EOSINOPHILS % (AUTO) 5.9 % (0.0-3.0); HEMATOCRIT 40.3 % (37.0-47.0); HEMOGLOBIN 13.2 G/DL (12.0-16.0); MEAN CORPUSCULAR VOLUME 93 FL (80-99); MONOCYTES % (AUTO) 6.5 % (1.0-10.0); NEUTROPHILS % (AUTO) 38.2 % (45.0-75.0); PLATELET COUNT 187 K/UL (150-450); RED BLOOD COUNT 4.31 M/UL (4.20-5.40); RED CELL DISTRIBUTION WIDTH 12.8 % (11.6-14.8)
--- NOTE | 2019-01-31 07:20 | NUR ---
HAND-OFF: Report given to Mildred Perkins RN.
--- NOTE | 2019-01-31 07:50 | NUR ---
NURSE NOTES: Patient is eating breakfast. Patient is on room air. Bed is locked, in lowest position, and call light is within reach. Will continue to monitor.
[2019-01-31 08:00] VITALS: BP 131/69
--- NOTE | 2019-01-31 08:52 | General Progress Note ---
Assessment/Plan Assessment/Plan: (1) Lumbar DDD (2) Lumbago (3) Peripheral Neuropathy Patient to be discontinued off Morphine and continued on Tylenol. D/w Dr. Ng and he concurred. Subjective Date patient seen: January 31, 2019 Time patient seen: 07:00 - am Allergies: Coded Allergies: PENICILLINS (Verified Allergy, Unknown, 01/27/19) Uncoded Allergies: EGGS (Allergy, Unknown, 01/27/19) Subjective REVIEW OF SYSTEMS: Denies rash, fever, chills, sweating, dizziness, drowsiness, blurred vision, sore throat, or change in weight. No shortness of breath or chest pain. No nausea, vomiting, diarrhea, blood in stool or urine. No bowel or bladder incontinence. No dysuria. She is complaining of weakness. SUBJECTIVE: Patient is in bed and has not been c/o pain, with no requests of the Morphine. Has no new complaints at this time. Objective Last 24 Hour Vital Signs Date Time Temp Pulse Resp B/P (MAP) Pulse Ox O2 Delivery O2 Flow Rate FiO2 01/31/19 04:00 98.0 80 18 128/76 (93) 97 01/31/19 00:00 97.9 77 18 110/71 (84) 96 01/30/19 21:00 Room Air 01/30/19 20:00 97.8 76 18 114/63 (80) 96 01/30/19 15:56 98.1 80 18 131/79 (96) 97 01/30/19 11:57 98.1 87 18 132/79 (96) 96 01/30/19 09:00 Room Air Intake and Output 01/30/19 01/31/19 19:00 07:00 Intake Total 760 ml 1220 ml Output Total 400 ml Balance 760 ml 820 ml Intake Oral 700 ml 500 ml IV Total 60 ml 720 ml Output Urine Total 400 ml # Voids 5 Laboratory Tests 01/31/19 05:33: White Blood Count 8.0, Red Blood Count 4.31, Hemoglobin 13.2, Hematocrit 40.3, Mean Corpuscular Volume 93, Mean Corpuscular Hemoglobin 30.6, Mean Corpuscular Hemoglobin Concent 32.8, Red Cell Distribution Width 12.8, Platelet Count 187, Mean Platelet Volume 6.4L, Neutrophils (%) (Auto) 38.2L, Lymphocytes (%) (Auto) 48.0H, Monocytes (%) (Auto) 6.5, Eosinophils (%) (Auto) 5.9H, Basophils (%) ( Auto) 1.5, Sodium Level 143, Potassium Level 3.8, Chloride Level 106, Carbon Dioxide Level 30, Anion Gap 7, Blood Urea Nitrogen 14, Creatinine 0.6, Estimat Glomerular Filtration Rate > 60, Glucose Level 109H, Calcium Level 9.1 Height (Feet): 5 Height (Inches): 4.00 Weight (Pounds): 199 Objective GENERAL: Alert, awake, and oriented. LUNGS: Clear bilaterally. HEART: S1 S2 Regular. ABDOMEN: Obese. EXTREMITIES: No cyanosis. No clubbing. NEURO: No changes. Errol Warren January 31, 2019 08:52
[2019-01-31] MEDS: OLANZapine 10mg tab ORAL SCH ×2 (09:00→20:41)
[2019-01-31] MEDS: Ciprofloxacin 500mg tab ORAL SCH (09:33)
[2019-01-31] MEDS: Benztropine 1mg tab ORAL SCH ×2 (09:34→18:34)
[2019-01-31] MEDS: Docusate 100mg cap ORAL SCH (09:35)
[2019-01-31] MEDS: Depakote 125mg Sprinkles ORAL SCH (09:36)
[2019-01-31] MEDS: Calcium Carbonate 500mg w/Vit D 200iu tab ORAL SCH (09:37)
[2019-01-31] MEDS: Vitamin D 1000 IU Tab ORAL SCH (09:39)
[2019-01-31] MEDS: Heparin 5000 units/ml inj SUBQ SCH ×2 (09:53→20:43)
--- NOTE | 2019-01-31 11:39 | Infectious Diseases Prog Note ---
Assessment/Plan Assessment/Plan ASSESSMENT: 1. Dysuria/microscopic hematuria, probable cystitis. -u/a no pyuria, leuk est +1; ucx MIXED UROGENITAL CONTAMINANTS COLONY COUNT: 10,000 - 20,000 CFU/ML -REnal US: Negative examination. Significant limitations on this exam due to large body habitus 2. Afebrile. 3. Normal white blood cell count. CT L Spine: Mild degenerative disc disease. Right psoas and iliopsoas muscle atrophy. - Neuropathy. - Hypertension. - COPD. - Dysphagia. -Diabetes. -. Schizophrenia. - Bipolar disorder. - Depression/anxiety. - Hyperlipidemia. PLAN: 1.D/c Cipro #4/3 2. We will send urine culture. 3. We will monitor CBC and BMP. 4. Based on the patient's clinical course and labs, we will do further recommendations. Thank you, Dr. Alexandro Albarado, for allowing me to participate in the care of this patient. I will follow the patient with you during this admission. Subjective Allergies: Coded Allergies: PENICILLINS (Verified Allergy, Unknown, 01/27/19) Uncoded Allergies: EGGS (Allergy, Unknown, 01/27/19) Subjective afebrile no leukocytosis Objective Vital Signs Last 24 Hour Vital Signs Date Time Temp Pulse Resp B/P (MAP) Pulse Ox O2 Delivery O2 Flow Rate FiO2 01/31/19 08:15 Room Air 01/31/19 08:00 98.0 88 16 131/69 (89) 95 01/31/19 04:00 98.0 80 18 128/76 (93) 97 01/31/19 00:00 97.9 77 18 110/71 (84) 96 01/30/19 21:00 Room Air 01/30/19 20:00 97.8 76 18 114/63 (80) 96 01/30/19 15:56 98.1 80 18 131/79 (96) 97 01/30/19 11:57 98.1 87 18 132/79 (96) 96 Height (Feet): 5 Height (Inches): 4.00 Weight (Pounds): 199 Objective HEENT: No pale conjunctivae. No scleral icterus. NECK: No lymphadenopathy. CHEST: Clear. HEART: S1 and S2. ABDOMEN: Soft, obese, nontender. No flank tenderness. EXTREMITIES: No cyanosis at this time. NEUROLOGIC: Awake. Microbiology Date/Time Source Procedure Growth Status 01/28/19 19:30 Urine,Clean Catch Urine Culture - Final Mixed Urogenital Contaminants Complete Laboratory Tests Test 01/31/19 05:33 White Blood Count 8.0 K/UL (4.8-10.8) Red Blood Count 4.31 M/UL (4.20-5.40) Hemoglobin 13.2 G/DL (12.0-16.0) Hematocrit 40.3 % (37.0-47.0) Mean Corpuscular Volume 93 FL (80-99) Mean Corpuscular Hemoglobin 30.6 PG (27.0-31.0) Mean Corpuscular Hemoglobin Concent 32.8 G/DL (32.0-36.0) Red Cell Distribution Width 12.8 % (11.6-14.8) Platelet Count 187 K/UL (150-450) Mean Platelet Volume 6.4 FL (6.5-10.1) L Neutrophils (%) (Auto) 38.2 % (45.0-75.0) L Lymphocytes (%) (Auto) 48.0 % (20.0-45.0) H Monocytes (%) (Auto) 6.5 % (1.0-10.0) Eosinophils (%) (Auto) 5.9 % (0.0-3.0) H Basophils (%) (Auto) 1.5 % (0.0-2.0) Sodium Level 143 MMOL/L (136-145) Potassium Level 3.8 MMOL/L (3.5-5.1) Chloride Level 106 MMOL/L (98-107) Carbon Dioxide Level 30 MMOL/L (21-32) Anion Gap 7 mmol/L (5-15) Blood Urea Nitrogen 14 mg/dL (7-18) Creatinine 0.6 MG/DL (0.55-1.30) Estimat Glomerular Filtration Rate > 60 mL/min (>60) Glucose Level 109 MG/DL (74-106) H Calcium Level 9.1 MG/DL (8.5-10.1) Current Medications Medications (Trade) Dose Ordered Sig/Servando Route PRN Reason Start Time Stop Time Status Last Admin Dose Admin Acetaminophen (Tylenol) 650 mg Q4H PRN ORAL fever 01/28/19 08:15 02/27/19 08:14 Acetaminophen (Tylenol) 650 mg Q6HR PRN ORAL Mild Pain (Pain Scale 1-3) 01/28/19 02:15 02/27/19 02:14 Al Hydroxide/Mg Hydroxide (Mylanta II) 30 ml Q4HR PRN ORAL GI DISTRESS 01/28/19 02:15 02/27/19 02:14 Benztropine Mesylate (Cogentin) 1 mg BID ORAL 01/28/19 09:00 02/27/19 08:59 01/31/19 09:34 Bisacodyl (Dulcolax) 10 mg NEEDED PRN RECTAL Constipation 01/28/19 02:15 02/27/19 02:14 Calcium Carbonate (OsCal D) 1 tab DAILY ORAL 01/28/19 09:00 02/27/19 08:59 01/31/19 09:37 Ciprofloxacin (Cipro 500mg tab) 500 mg EVERY 12 HOURS ORAL 01/28/19 12:00 02/04/19 11:59 01/31/19 09:33 Clonidine HCl (Catapres Tab) 0.1 mg EVERY 6 HOURS PRN ORAL For High Blood Pressure 01/28/19 02:15 02/27/19 02:14 Dextrose (Dextrose 50%) 25 ml Q30M PRN IV Hypoglycemia 01/28/19 08:15 02/27/19 08:14 Dextrose (Dextrose 50%) 50 ml Q30M PRN IV Hypoglycemia 01/28/19 08:15 02/27/19 08:14 Dextrose/Sodium Chloride 1,000 ml @ 60 mls/hr [id number] IV 01/28/19 02:15 02/27/19 02:14 01/30/19 21:30 Divalproex Sodium (Depakote Sprinkles) 125 mg DAILY ORAL 01/28/19 09:00 02/27/19 08:59 01/31/19 09:36 Divalproex Sodium (Depakote) 250 mg BEDTIME ORAL 01/28/19 21:00 02/27/19 20:59 01/30/19 21:30 Docusate Sodium (Colace) 100 mg DAILY ORAL 01/28/19 09:00 02/27/19 08:59 01/31/19 09:35 Gabapentin (Neurontin) 300 mg TID ORAL 01/28/19 09:00 02/27/19 08:59 01/31/19 09:36 Heparin Sodium (Porcine) (Heparin 5000 units/ml) 5,000 units EVERY 12 HOURS SUBQ 01/28/19 09:00 02/27/19 08:59 01/31/19 09:53 Lorazepam (Ativan 2mg/ml 1ml) 0.5 mg Q4H PRN IV For Anxiety 01/28/19 08:15 02/04/19 08:14 Magnesium Hydroxide (Mom) 30 ml DAILY PRN ORAL Constipation 01/28/19 02:15 02/27/19 02:14 Olanzapine (ZyPREXA) 10 mg DAILY ORAL 01/28/19 09:00 02/27/19 08:59 01/30/19 08:52 Olanzapine (ZyPREXA) 15 mg BEDTIME ORAL 01/28/19 21:00 02/27/19 20:59 01/30/19 21:31 Ondansetron HCl (Zofran) 4 mg Q6H PRN IVP Nausea & Vomiting 01/28/19 08:15 02/27/19 08:14 Polyethylene Glycol (Miralax) 17 gm HSPRN PRN ORAL Constipation 01/28/19 08:15 02/27/19 08:14 Sodium Phosphate (Fleet's Sodium Phosl Enema) 133 ml NEEDED PRN RECTAL Constipation 01/28/19 02:15 02/27/19 02:14 Vitamin D (Vitamin D) 2,000 intlu DAILY ORAL 01/28/19 09:00 02/27/19 08:59 01/31/19 09:39 Zolpidem Tartrate (Ambien) 5 mg HSPRN PRN ORAL Insomnia 01/28/19 08:15 02/04/19 08:14 Zena Philip M.D. January 31, 2019 11:39
[2019-01-31 12:00] VITALS: BP 113/59
--- NOTE | 2019-01-31 13:09 | Pulmonology Progress Note ---
Assessment/Plan Problems: (1) Acute encephalopathy (2) UTI (urinary tract infection) (3) Intractable low back pain (4) Lumbar disc disease Assessment/Plan improving symptomatic treatment pain management all reviewed medication reviewed dvt prophylaxis. continue same regiment dc planning Subjective ROS Limited/Unobtainable: No Constitutional: Reports: no symptoms HEENT: Repors: no symptoms Respiratory: Reports: no symptoms Allergies: Coded Allergies: PENICILLINS (Verified Allergy, Unknown, 01/27/19) Uncoded Allergies: EGGS (Allergy, Unknown, 01/27/19) Objective Last 24 Hour Vital Signs Date Time Temp Pulse Resp B/P (MAP) Pulse Ox O2 Delivery O2 Flow Rate FiO2 01/31/19 08:15 Room Air 01/31/19 08:00 98.0 88 16 131/69 (89) 95 01/31/19 04:00 98.0 80 18 128/76 (93) 97 01/31/19 00:00 97.9 77 18 110/71 (84) 96 01/30/19 21:00 Room Air 01/30/19 20:00 97.8 76 18 114/63 (80) 96 01/30/19 15:56 98.1 80 18 131/79 (96) 97 Intake and Output 01/30/19 01/31/19 19:00 07:00 Intake Total 760 ml 1220 ml Output Total 400 ml Balance 760 ml 820 ml Intake Oral 700 ml 500 ml IV Total 60 ml 720 ml Output Urine Total 400 ml # Voids 5 General Appearance: WD/WN HEENT: normocephalic, atraumatic Respiratory/Chest: chest wall non-tender, lungs clear Breasts: no masses Cardiovascular: normal peripheral pulses Abdomen: normal bowel sounds, soft, non tender, no scars Extremities: no cyanosis Skin: no rash Microbiology Date/Time Source Procedure Growth Status 01/28/19 19:30 Urine,Clean Catch Urine Culture - Final Mixed Urogenital Contaminants Complete Laboratory Tests 01/31/19 05:33: White Blood Count 8.0, Red Blood Count 4.31, Hemoglobin 13.2, Hematocrit 40.3, Mean Corpuscular Volume 93, Mean Corpuscular Hemoglobin 30.6, Mean Corpuscular Hemoglobin Concent 32.8, Red Cell Distribution Width 12.8, Platelet Count 187, Mean Platelet Volume 6.4L, Neutrophils (%) (Auto) 38.2L, Lymphocytes (%) (Auto) 48.0H, Monocytes (%) (Auto) 6.5, Eosinophils (%) (Auto) 5.9H, Basophils (%) ( Auto) 1.5, Sodium Level 143, Potassium Level 3.8, Chloride Level 106, Carbon Dioxide Level 30, Anion Gap 7, Blood Urea Nitrogen 14, Creatinine 0.6, Estimat Glomerular Filtration Rate > 60, Glucose Level 109H, Calcium Level 9.1 Current Medications Medications (Trade) Dose Ordered Sig/Servando Route PRN Reason Start Time Stop Time Status Last Admin Dose Admin Acetaminophen (Tylenol) 650 mg Q4H PRN ORAL fever 01/28/19 08:15 02/27/19 08:14 Acetaminophen (Tylenol) 650 mg Q6HR PRN ORAL Mild Pain (Pain Scale 1-3) 01/28/19 02:15 02/27/19 02:14 Al Hydroxide/Mg Hydroxide (Mylanta II) 30 ml Q4HR PRN ORAL GI DISTRESS 01/28/19 02:15 02/27/19 02:14 Benztropine Mesylate (Cogentin) 1 mg BID ORAL 01/28/19 09:00 02/27/19 08:59 01/31/19 09:34 Bisacodyl (Dulcolax) 10 mg NEEDED PRN RECTAL Constipation 01/28/19 02:15 02/27/19 02:14 Calcium Carbonate (OsCal D) 1 tab DAILY ORAL 01/28/19 09:00 02/27/19 08:59 01/31/19 09:37 Clonidine HCl (Catapres Tab) 0.1 mg EVERY 6 HOURS PRN ORAL For High Blood Pressure 01/28/19 02:15 02/27/19 02:14 Dextrose (Dextrose 50%) 25 ml Q30M PRN IV Hypoglycemia 01/28/19 08:15 02/27/19 08:14 Dextrose (Dextrose 50%) 50 ml Q30M PRN IV Hypoglycemia 01/28/19 08:15 02/27/19 08:14 Dextrose/Sodium Chloride 1,000 ml @ 60 mls/hr [id number] IV 01/28/19 02:15 02/27/19 02:14 01/30/19 21:30 Divalproex Sodium (Depakote Sprinkles) 125 mg DAILY ORAL 01/28/19 09:00 02/27/19 08:59 01/31/19 09:36 Divalproex Sodium (Depakote) 250 mg BEDTIME ORAL 01/28/19 21:00 02/27/19 20:59 01/30/19 21:30 Docusate Sodium (Colace) 100 mg DAILY ORAL 01/28/19 09:00 02/27/19 08:59 01/31/19 09:35 Gabapentin (Neurontin) 300 mg TID ORAL 01/28/19 09:00 02/27/19 08:59 01/31/19 09:36 Heparin Sodium (Porcine) (Heparin 5000 units/ml) 5,000 units EVERY 12 HOURS SUBQ 01/28/19 09:00 02/27/19 08:59 01/31/19 09:53 Lorazepam (Ativan 2mg/ml 1ml) 0.5 mg Q4H PRN IV For Anxiety 01/28/19 08:15 02/04/19 08:14 Magnesium Hydroxide (Mom) 30 ml DAILY PRN ORAL Constipation 01/28/19 02:15 02/27/19 02:14 Olanzapine (ZyPREXA) 10 mg DAILY ORAL 01/28/19 09:00 02/27/19 08:59 01/30/19 08:52 Olanzapine (ZyPREXA) 15 mg BEDTIME ORAL 01/28/19 21:00 02/27/19 20:59 01/30/19 21:31 Ondansetron HCl (Zofran) 4 mg Q6H PRN IVP Nausea & Vomiting 01/28/19 08:15 02/27/19 08:14 Polyethylene Glycol (Miralax) 17 gm HSPRN PRN ORAL Constipation 01/28/19 08:15 02/27/19 08:14 Sodium Phosphate (Fleet's Sodium Phosl Enema) 133 ml NEEDED PRN RECTAL Constipation 01/28/19 02:15 02/27/19 02:14 Vitamin D (Vitamin D) 2,000 intlu DAILY ORAL 01/28/19 09:00 02/27/19 08:59 01/31/19 09:39 Zolpidem Tartrate (Ambien) 5 mg HSPRN PRN ORAL Insomnia 01/28/19 08:15 02/04/19 08:14 Deny Gan MD January 31, 2019 13:09
[2019-01-31] MEDS: D5 1/2NS 1,000 ML IV SCH (14:11)
--- NOTE | 2019-01-31 14:45 | Neurology Progress Note ---
Interim History Interim History ROS Limited/Unobtainable: No Complaints: AMS Events: Significantly more alert today Review of Systems All Systems: reviewed and negative except above Objective Physical Exam Last Vital Signs Date Time Temp Pulse Resp B/P (MAP) Pulse Ox O2 Delivery O2 Flow Rate FiO2 01/31/19 12:00 97.7 68 16 113/59 (77) 95 01/31/19 08:15 Room Air Laboratory Tests Test 01/31/19 05:33 White Blood Count 8.0 K/UL (4.8-10.8) Red Blood Count 4.31 M/UL (4.20-5.40) Hemoglobin 13.2 G/DL (12.0-16.0) Hematocrit 40.3 % (37.0-47.0) Mean Corpuscular Volume 93 FL (80-99) Mean Corpuscular Hemoglobin 30.6 PG (27.0-31.0) Mean Corpuscular Hemoglobin Concent 32.8 G/DL (32.0-36.0) Red Cell Distribution Width 12.8 % (11.6-14.8) Platelet Count 187 K/UL (150-450) Mean Platelet Volume 6.4 FL (6.5-10.1) L Neutrophils (%) (Auto) 38.2 % (45.0-75.0) L Lymphocytes (%) (Auto) 48.0 % (20.0-45.0) H Monocytes (%) (Auto) 6.5 % (1.0-10.0) Eosinophils (%) (Auto) 5.9 % (0.0-3.0) H Basophils (%) (Auto) 1.5 % (0.0-2.0) Sodium Level 143 MMOL/L (136-145) Potassium Level 3.8 MMOL/L (3.5-5.1) Chloride Level 106 MMOL/L (98-107) Carbon Dioxide Level 30 MMOL/L (21-32) Anion Gap 7 mmol/L (5-15) Blood Urea Nitrogen 14 mg/dL (7-18) Creatinine 0.6 MG/DL (0.55-1.30) Estimat Glomerular Filtration Rate > 60 mL/min (>60) Glucose Level 109 MG/DL (74-106) H Calcium Level 9.1 MG/DL (8.5-10.1) General: well developed, well nourished Head: normocophalic Neck: no rigidity EENT: benign Neurologic Exam Mental Status: awake, alert, oriented x4 Speech: other - Still with some dysarthria but no focal weakness and much more interactive / appropriate in eye contact and speech today. Cranial Nerves III, IV, : PERRLA, EOMI, pupils Cranial Nerve VII: no facial asymmetry, normal facial expressions Cranial Nerve VIII: normal hearing, no nystagmus Cranial Nerve IX: normal palate elevation, gag response Cranial Nerve X: no voice hoarseness Cranial Nerve XI: SCM symmetric, trapezii function normal Cranial Nerve XII: tongue midline, no tongue atrophy/fasciculations Motor System: normal muscle tone, strength 5/5, no involuntary movement, no muscle wasting, other - Right Psoas muscle weakness/ iliapsoas atrophy- diminished strength on exam but unable to assess in depth. Sensory: normal pinprick, normal light touch, normal position sense, normal graphesthesia Deep Tendon Reflexes: 2+ bicep (L), 2+ bicep (R), 2+ tricep (L), 2+ tricep (R) , 2+ brachioradialis (L), 2+ brachioradialis (R), 2+ knee (L), 2+ knee (R), 2+ ankle (L), 2+ ankle (R) Impression/Recommendations Problems: (1) Intractable low back pain (2) UTI (urinary tract infection) (3) Altered mental status (4) Lumbar disc disease Assessment & Plan: EMG NCS for right leg weakness as outpatient Status: doing well, stable, progressing, tolerating diet, ambulating well Recommendations COntinue Q 4 hour neuro obs Treat with Abx as per ID/ primary team Psych consult- for schizoaffective disorder Maintain normothermia / normoglycemia with ISS Prevent Delrium with : OOB during daytime Maintain sleep hygiene at night with dark room Avoid use of benzodiazapenes, opioids, and anticholinergics. EMG NCS as outpatient Andreea Guerrero N.P. January 31, 2019 14:45
--- NOTE | 2019-01-31 14:56 | General Progress Note ---
Assessment/Plan Problem List: (1) UTI (urinary tract infection) ICD Codes: N39.0 - Urinary tract infection, site not specified SNOMED: 25203875 (2) Lumbar disc disease ICD Codes: M51.9 - Unspecified thoracic, thoracolumbar and lumbosacral intervertebral disc disorder SNOMED: 250214617 (3) Intractable low back pain ICD Codes: M54.5 - Low back pain SNOMED: 44157864226072985 (4) Altered mental status ICD Codes: R41.82 - Altered mental status, unspecified SNOMED: 123423927 Qualifiers: Qualified Codes: R40.0 - Somnolence (5) Sacral decubitus ulcer, stage III ICD Codes: L89.153 - Pressure ulcer of sacral region, stage 3 SNOMED: 867711962, 420307675 Status: stable, progressing, ambulating well Assessment/Plan: wound care abx per id, pt diet eval psyc neuro eval cbc bmp am ltach eval Subjective Constitutional: Reports: weakness Allergies: Coded Allergies: PENICILLINS (Verified Allergy, Unknown, 01/27/19) Uncoded Allergies: EGGS (Allergy, Unknown, 01/27/19) All Systems: reviewed and negative except above Subjective sl confused Objective Last 24 Hour Vital Signs Date Time Temp Pulse Resp B/P (MAP) Pulse Ox O2 Delivery O2 Flow Rate FiO2 01/31/19 12:00 97.7 68 16 113/59 (77) 95 01/31/19 08:15 Room Air 01/31/19 08:00 98.0 88 16 131/69 (89) 95 01/31/19 04:00 98.0 80 18 128/76 (93) 97 01/31/19 00:00 97.9 77 18 110/71 (84) 96 01/30/19 21:00 Room Air 01/30/19 20:00 97.8 76 18 114/63 (80) 96 01/30/19 15:56 98.1 80 18 131/79 (96) 97 Intake and Output 01/30/19 01/31/19 19:00 07:00 Intake Total 760 ml 1220 ml Output Total 400 ml Balance 760 ml 820 ml Intake Oral 700 ml 500 ml IV Total 60 ml 720 ml Output Urine Total 400 ml # Voids 5 Laboratory Tests 01/31/19 05:33: White Blood Count 8.0, Red Blood Count 4.31, Hemoglobin 13.2, Hematocrit 40.3, Mean Corpuscular Volume 93, Mean Corpuscular Hemoglobin 30.6, Mean Corpuscular Hemoglobin Concent 32.8, Red Cell Distribution Width 12.8, Platelet Count 187, Mean Platelet Volume 6.4L, Neutrophils (%) (Auto) 38.2L, Lymphocytes (%) (Auto) 48.0H, Monocytes (%) (Auto) 6.5, Eosinophils (%) (Auto) 5.9H, Basophils (%) ( Auto) 1.5, Sodium Level 143, Potassium Level 3.8, Chloride Level 106, Carbon Dioxide Level 30, Anion Gap 7, Blood Urea Nitrogen 14, Creatinine 0.6, Estimat Glomerular Filtration Rate > 60, Glucose Level 109H, Calcium Level 9.1 01/31/19 14:43: Hemoglobin A1c [Pending] Height (Feet): 5 Height (Inches): 4.00 Weight (Pounds): 199 General Appearance: lethargic EENT: normal ENT inspection Neck: normal alignment Cardiovascular: normal peripheral pulses, normal rate, regular rhythm Respiratory/Chest: chest wall non-tender, lungs clear, normal breath sounds Abdomen: normal bowel sounds, non tender, soft Extremities: normal inspection Edema: no edema noted Arm (L), no edema noted Arm (R), no edema noted Leg (L), no edema noted Leg (R), no edema noted Pedal (L), no edema noted Pedal (R), no edema noted Generalized Neurologic: motor weakness Skin: normal pigmentation, warm/dry Alexandro Albarado DO January 31, 2019 14:56
[2019-01-31 16:00] VITALS: BP 128/95
--- NOTE | 2019-01-31 16:15 | Consultation ---
History of Present Illness General Reason for Hospitalization: Pain Present Illness HPI 58 year old female with multiple medical comorbidities currently admitted for medical care and management was noted during admission to have wound requiring care. surgery called to evaluate and assist with care. patient seen, chart reviewed, patient examined. Allergies: Coded Allergies: PENICILLINS (Verified Allergy, Unknown, 01/27/19) Uncoded Allergies: EGGS (Allergy, Unknown, 01/27/19) Medication History Scheduled Benztropine Mesylate* (Cogentin*), 1 MG PO BID, (Reported) Calcium Carbonate/Vitamin D3 (Os-Eduar 500+D3 Caplet), 1 EACH PO DAILY, (Reported) Cholecalciferol (Vitamin D3)* (Vitamin D*), 2,000 UNITS ORAL DAILY, (Reported) Cran/Vitc/Mannose/Inulin/Brom (Uti-Stat Liquid), 30 ML PO DAILY, (Reported) Divalproex Sodium (Depakote), 125 MG PO DAILY, (Reported) Divalproex Sodium* (Depakote*), 250 MG PO HS, (Reported) Docusate Sodium* (Colace*), 100 MG ORAL DAILY, (Reported) Gabapentin* (Gabapentin*), 300 MG ORAL TID, (Reported) Lactulose (Lactulose*), 60 ML ORAL TID, (Reported) Olanzapine* (Zyprexa*), 10 MG ORAL DAILY, (Reported) Olanzapine* (Zyprexa*), 15 MG ORAL BEDTIME, (Reported) Scheduled PRN Acetaminophen* (Tylenol Extra Strength*), 1,000 MG ORAL Q6H PRN for Moderate Pain (Pain Scale 4-6), (Reported) Acetaminophen* (Acetaminophen 325MG Tablet*), 650 MG ORAL Q6H PRN for Mild Pain (Pain Scale 1-3), (Reported) Bisacodyl (Dulcolax), 10 MG RC for Constipation, (Reported) Clonidine Hcl* (Catapres*), 0.1 MG ORAL EVERY 6 HOURS PRN for For High Blood Pressure, (Reported) Mag Hydrox/Al Hydrox/Simeth (Ursula-Lanta Liquid), 30 ML PO Q4HR PRN for GI DISTRESS, (Reported) Magnesium Hydroxide* (Milk Of Magnesia*), 30 ML ORAL DAILY PRN for Constipation, (Reported) Na Phos,M-B/Na Phos,Di-Ba* (Fleet Enema*), 133 ML RECTAL Q2DAYS PRN for Constipation, (Reported) Patient History Limited by: medical condition History Provided By: Medical Record, PMD Healthcare decision maker Resuscitation status Advanced Directive on File Past Medical/Surgical History Past Medical/Surgical History: (1) Sacral decubitus ulcer, stage III (2) Lumbar disc disease (3) Intractable low back pain (4) UTI (urinary tract infection) (5) Altered mental status (6) Acute encephalopathy Review of Systems Review of Symptoms General ROS: no weight loss or fever Psychological ROS: no depression or mood changes, no memory loss Ophthalmic ROS: no visual changes or eye irritation ENT ROS: no nasal congestion, hearing loss, dizziness Allergy and Immunology ROS: no allergic symptoms or urticaria Hematological and Lymphatic ROS: no swollen glands, unusual bleeding or bruising Endocrine ROS: no polyuria, polydipsia, weight changes, temperature intolerance Respiratory ROS: no cough, shortness of breath, or wheezing Cardiovascular ROS: no chest pain or dyspnea on exertion Gastrointestinal ROS: denies abdominal pain, bright red blood in stool. Musculoskeletal ROS: no myalgias or arthralgias Neurological ROS: no TIA or stroke symptoms Dermatological ROS: no new or changing skin lesions, rashes or pruritis Physical Exam Physical Exam General appearance: alert, cooperative, no distress, appears stated age Head: Normocephalic, without obvious abnormality, atraumatic Eyes: conjunctivae/corneas clear. PERRL, EOM's intact. Fundi benign Throat: Lips, mucosa, and tongue normal. Teeth and gums normal Neck: supple, symmetrical, trachea midline, no adenopathy, thyroid: not enlarged, symmetric, no tenderness/mass/nodules, no carotid bruit and no JVD Lungs: clear to auscultation bilaterally Heart: regular rate and rhythm, S1, S2 normal, no murmur, click, rub or gallop Abdomen: soft, non-tender. Bowel sounds normal. No masses, no organomegaly Extremities: extremities normal, atraumatic, no cyanosis or edema Pulses: 2+ and symmetric Skin: Skin color, texture, turgor normal. No rashes or lesions Neurologic: Grossly normal Last 24 Hour Vital Signs Date Time Temp Pulse Resp B/P (MAP) Pulse Ox O2 Delivery O2 Flow Rate FiO2 01/31/19 16:00 97.2 80 20 128/95 (106) 95 01/31/19 12:00 97.7 68 16 113/59 (77) 95 01/31/19 08:15 Room Air 01/31/19 08:00 98.0 88 16 131/69 (89) 95 01/31/19 04:00 98.0 80 18 128/76 (93) 97 01/31/19 00:00 97.9 77 18 110/71 (84) 96 01/30/19 21:00 Room Air 01/30/19 20:00 97.8 76 18 114/63 (80) 96 Intake and Output 01/30/19 01/31/19 19:00 07:00 Intake Total 760 ml 1220 ml Output Total 400 ml Balance 760 ml 820 ml Intake Oral 700 ml 500 ml IV Total 60 ml 720 ml Output Urine Total 400 ml # Voids 5 Laboratory Tests Test 01/31/19 05:33 01/31/19 05:35 White Blood Count 8.0 K/UL (4.8-10.8) Red Blood Count 4.31 M/UL (4.20-5.40) Hemoglobin 13.2 G/DL (12.0-16.0) Hematocrit 40.3 % (37.0-47.0) Mean Corpuscular Volume 93 FL (80-99) Mean Corpuscular Hemoglobin 30.6 PG (27.0-31.0) Mean Corpuscular Hemoglobin Concent 32.8 G/DL (32.0-36.0) Red Cell Distribution Width 12.8 % (11.6-14.8) Platelet Count 187 K/UL (150-450) Mean Platelet Volume 6.4 FL (6.5-10.1) L Neutrophils (%) (Auto) 38.2 % (45.0-75.0) L Lymphocytes (%) (Auto) 48.0 % (20.0-45.0) H Monocytes (%) (Auto) 6.5 % (1.0-10.0) Eosinophils (%) (Auto) 5.9 % (0.0-3.0) H Basophils (%) (Auto) 1.5 % (0.0-2.0) Sodium Level 143 MMOL/L (136-145) Potassium Level 3.8 MMOL/L (3.5-5.1) Chloride Level 106 MMOL/L (98-107) Carbon Dioxide Level 30 MMOL/L (21-32) Anion Gap 7 mmol/L (5-15) Blood Urea Nitrogen 14 mg/dL (7-18) Creatinine 0.6 MG/DL (0.55-1.30) Estimat Glomerular Filtration Rate > 60 mL/min (>60) Glucose Level 109 MG/DL (74-106) H Calcium Level 9.1 MG/DL (8.5-10.1) Hemoglobin A1c 5.8 % (4.3-6.0) Height (Feet): 5 Height (Inches): 4.00 Weight (Pounds): 199 Medications Current Medications Medications (Trade) Dose Ordered Sig/Servando Route PRN Reason Start Time Stop Time Status Last Admin Dose Admin Acetaminophen (Tylenol) 650 mg Q4H PRN ORAL fever 01/28/19 08:15 02/27/19 08:14 Acetaminophen (Tylenol) 650 mg Q6HR PRN ORAL Mild Pain (Pain Scale 1-3) 01/28/19 02:15 02/27/19 02:14 Al Hydroxide/Mg Hydroxide (Mylanta II) 30 ml Q4HR PRN ORAL GI DISTRESS 01/28/19 02:15 02/27/19 02:14 Benztropine Mesylate (Cogentin) 1 mg BID ORAL 01/28/19 09:00 02/27/19 08:59 01/31/19 09:34 Bisacodyl (Dulcolax) 10 mg NEEDED PRN RECTAL Constipation 01/28/19 02:15 02/27/19 02:14 Calcium Carbonate (OsCal D) 1 tab DAILY ORAL 01/28/19 09:00 02/27/19 08:59 01/31/19 09:37 Clonidine HCl (Catapres Tab) 0.1 mg EVERY 6 HOURS PRN ORAL For High Blood Pressure 01/28/19 02:15 02/27/19 02:14 Dextrose (Dextrose 50%) 25 ml Q30M PRN IV Hypoglycemia 01/28/19 08:15 02/27/19 08:14 Dextrose (Dextrose 50%) 50 ml Q30M PRN IV Hypoglycemia 01/28/19 08:15 02/27/19 08:14 Dextrose/Sodium Chloride 1,000 ml @ 60 mls/hr [id number] IV 01/28/19 02:15 02/27/19 02:14 01/31/19 14:11 Divalproex Sodium (Depakote Sprinkles) 125 mg DAILY ORAL 01/28/19 09:00 02/27/19 08:59 01/31/19 09:36 Divalproex Sodium (Depakote) 250 mg BEDTIME ORAL 01/28/19 21:00 02/27/19 20:59 01/30/19 21:30 Docusate Sodium (Colace) 100 mg DAILY ORAL 01/28/19 09:00 02/27/19 08:59 01/31/19 09:35 Gabapentin (Neurontin) 300 mg TID ORAL 01/28/19 09:00 02/27/19 08:59 01/31/19 14:10 Heparin Sodium (Porcine) (Heparin 5000 units/ml) 5,000 units EVERY 12 HOURS SUBQ 01/28/19 09:00 02/27/19 08:59 01/31/19 09:53 Lorazepam (Ativan 2mg/ml 1ml) 0.5 mg Q4H PRN IV For Anxiety 01/28/19 08:15 02/04/19 08:14 Magnesium Hydroxide (Mom) 30 ml DAILY PRN ORAL Constipation 01/28/19 02:15 02/27/19 02:14 Olanzapine (ZyPREXA) 10 mg DAILY ORAL 01/28/19 09:00 02/27/19 08:59 01/30/19 08:52 Olanzapine (ZyPREXA) 15 mg BEDTIME ORAL 01/28/19 21:00 02/27/19 20:59 01/30/19 21:31 Ondansetron HCl (Zofran) 4 mg Q6H PRN IVP Nausea & Vomiting 01/28/19 08:15 02/27/19 08:14 Polyethylene Glycol (Miralax) 17 gm HSPRN PRN ORAL Constipation 01/28/19 08:15 02/27/19 08:14 Sodium Phosphate (Fleet's Sodium Phosl Enema) 133 ml NEEDED PRN RECTAL Constipation 01/28/19 02:15 02/27/19 02:14 Vitamin D (Vitamin D) 2,000 intlu DAILY ORAL 01/28/19 09:00 02/27/19 08:59 01/31/19 09:39 Zolpidem Tartrate (Ambien) 5 mg HSPRN PRN ORAL Insomnia 01/28/19 08:15 02/04/19 08:14 Assessment/Plan Problem List: (1) Lumbar disc disease ICD Codes: M51.9 - Unspecified thoracic, thoracolumbar and lumbosacral intervertebral disc disorder SNOMED: 766101188 (2) Intractable low back pain Assessment & Plan: possible skin dermatitis which will heal as wounds heal ICD Codes: M54.5 - Low back pain SNOMED: 44771730598332291 (3) UTI (urinary tract infection) ICD Codes: N39.0 - Urinary tract infection, site not specified SNOMED: 05631007 (4) Altered mental status ICD Codes: R41.82 - Altered mental status, unspecified SNOMED: 362767990 Qualifiers: Qualified Codes: R40.0 - Somnolence (5) Acute encephalopathy ICD Codes: G93.40 - Encephalopathy, unspecified SNOMED: 79001416, 757862641 (6) Sacral decubitus ulcer, stage III Assessment & Plan: Patient with stage 2 incontinence associate dermatitis in the sacral region with partial thickness skin breakdown tissue. no full thickness noted large area of erythema from stool and urine incontinence Tx Plan: need to monitor for urine and BM and change accordingly wash sacral and buttock skin daily and apply skin protectante turn q2h off load pressure off load heels with pillow ICD Codes: L89.153 - Pressure ulcer of sacral region, stage 3 SNOMED: 966951355, 871231180 Abner Paul January 31, 2019 16:15
--- NOTE | 2019-01-31 19:19 | NUR ---
HAND-OFF: Report given to CARMELA Watson.
--- NOTE | 2019-01-31 19:30 | NUR ---
NURSE NOTES: Received report from CARMELA Levy. Patient A&Ox2-3. On room air, no signs of distress or labored breathing. Speaks with garbled speech. IV intact, patent, and infusing IV fluids. Bed in lowest position with call light in reach. Will continue with plan of care.
[2019-01-31 20:00] VITALS: BP 130/69
[2019-02-01] VITALS: BP 117/60
--- NOTE | 2019-02-01 02:50 | Neurology Progress Note ---
Interim History Interim History ROS Limited/Unobtainable: No Complaints: AMS Events: No new events - unchanged leg weakness Objective Physical Exam Last Vital Signs Date Time Temp Pulse Resp B/P (MAP) Pulse Ox O2 Delivery O2 Flow Rate FiO2 01/31/19 21:00 Room Air 01/31/19 20:00 98.3 83 20 130/69 (89) 95 Laboratory Tests Test 01/31/19 05:33 01/31/19 05:35 White Blood Count 8.0 K/UL (4.8-10.8) Red Blood Count 4.31 M/UL (4.20-5.40) Hemoglobin 13.2 G/DL (12.0-16.0) Hematocrit 40.3 % (37.0-47.0) Mean Corpuscular Volume 93 FL (80-99) Mean Corpuscular Hemoglobin 30.6 PG (27.0-31.0) Mean Corpuscular Hemoglobin Concent 32.8 G/DL (32.0-36.0) Red Cell Distribution Width 12.8 % (11.6-14.8) Platelet Count 187 K/UL (150-450) Mean Platelet Volume 6.4 FL (6.5-10.1) L Neutrophils (%) (Auto) 38.2 % (45.0-75.0) L Lymphocytes (%) (Auto) 48.0 % (20.0-45.0) H Monocytes (%) (Auto) 6.5 % (1.0-10.0) Eosinophils (%) (Auto) 5.9 % (0.0-3.0) H Basophils (%) (Auto) 1.5 % (0.0-2.0) Sodium Level 143 MMOL/L (136-145) Potassium Level 3.8 MMOL/L (3.5-5.1) Chloride Level 106 MMOL/L (98-107) Carbon Dioxide Level 30 MMOL/L (21-32) Anion Gap 7 mmol/L (5-15) Blood Urea Nitrogen 14 mg/dL (7-18) Creatinine 0.6 MG/DL (0.55-1.30) Estimat Glomerular Filtration Rate > 60 mL/min (>60) Glucose Level 109 MG/DL (74-106) H Calcium Level 9.1 MG/DL (8.5-10.1) Hemoglobin A1c 5.8 % (4.3-6.0) General: well developed, well nourished Head: normocophalic Neck: no rigidity EENT: benign Neurologic Exam Mental Status: awake, alert, oriented x4 Speech: other - Still with some dysarthria but no focal weakness and much more interactive / appropriate in eye contact and speech today. Cranial Nerves III, IV, : PERRLA, EOMI, pupils Cranial Nerve VII: no facial asymmetry, normal facial expressions Cranial Nerve VIII: normal hearing, no nystagmus Cranial Nerve IX: normal palate elevation, gag response Cranial Nerve X: no voice hoarseness Cranial Nerve XI: SCM symmetric, trapezii function normal Cranial Nerve XII: tongue midline, no tongue atrophy/fasciculations Motor System: normal muscle tone, strength 5/5, no involuntary movement, no muscle wasting, other - Right Psoas muscle weakness/ iliapsoas atrophy- diminished strength on exam but unable to assess in depth. Sensory: normal pinprick, normal light touch, normal position sense, normal graphesthesia Deep Tendon Reflexes: 2+ bicep (L), 2+ bicep (R), 2+ tricep (L), 2+ tricep (R) , 2+ brachioradialis (L), 2+ brachioradialis (R), 2+ knee (L), 2+ knee (R), 2+ ankle (L), 2+ ankle (R) Impression/Recommendations Problems: (1) Intractable low back pain (2) UTI (urinary tract infection) (3) Altered mental status (4) Lumbar disc disease Assessment & Plan: [facility] NCS for right leg weakness as outpatient Status: stable, progressing, ambulating well Recommendations CLear for discharge from a neurological perspective EMG NCS as outpatient Andreea Guerrero N.P. February 01, 2019 02:50
[2019-02-01 04:00] VITALS: BP 128/78
[2019-02-01] MEDS: D5 1/2NS 1,000 ML IV SCH (06:16)
--- NOTE | 2019-02-01 07:45 | NUR ---
NURSE NOTES: Patient awake, on room air, no sign of shortness of breath, no sign of distress; IV Right-wrist fluid D51/2NS running at 60cc; Purick in place drains urine; side rails up x2, bed at lowest position, breaks engaged; call light within reach, will keep monitoring.
--- NOTE | 2019-02-01 07:45 | NUR ---
HAND-OFF: Report given to CARMELA Franklin.
[2019-02-01 08:00] VITALS: BP 112/70
--- NOTE | 2019-02-01 08:00 | Consultation ---
DATE OF CONSULTATION: 01/30/2019 PSYCHOTHERAPY CONSULTATION PROGRESS NOTE CONSULTING PHYSICIAN: Florencio Flores PsyD. TREATING ATTENDING PHYSICIAN: Alexandro Albarado D.O. HISTORY OF PRESENT ILLNESS: The patient is a 58-year-old female patient. This patient was brought in from [facility] due to altered mental status and lower back pain. This clinician assessed this patient. She is 58 years old. The patient is able to communicate. She is mumbling her words. It is difficult to understand, however after a period of time, the patient was able to communicate her thoughts. The patient denies suicidal or homicidal thoughts of ideation. Denies any auditory or visual hallucinations. She states that she does not have any anxiety. Denies any depression at this time. She states that she is much fearful if she is in the hospital. The patient wanted to return back to her nursing facility. The patient is having difficulty recalling information including the name of the nursing facility; however, she was able to communicate and articulate her thoughts to this clinician. The patient does have a history of mental illness. She indicates having a history of depression; however, at this time, she states that she is coping with her current hospitalization. The patient is alert and oriented to person and place; however, she has very poor insight into why she was brought in to hospital. She is slightly confused and disorganized. PAST MEDICAL HISTORY: Includes a history of abdominal surgery and lower back pain. ALLERGIES: The patient is allergic to penicillin. SUBSTANCE ABUSE HISTORY: There is no indication of alcohol use or illicit substance use. She does have history of smoking cigarettes. PSYCHIATRIC HISTORY: The patient does have a history of depression and has been treated with medications in the past. SOCIAL HISTORY: The patient is a 58-year-old female patient from [facility] and financially sustained through [employer]. MENTAL STATUS EXAMINATION: Alert and oriented to person and place. Mood is dysphoric. Affect blunted. Thought process, slightly disorganized. Thought content, confused. She has poor attention and concentration. Poor insight, judgment, and impulse control. I ASSESSED THIS PATIENT. PROVIDED THE PATIENT WITH: 1. Reality orientation which is focused on improving cognitive function of the patient who is confused and disorganized. Oriented to person, place, time, and situation. 2. Supportive psychotherapy, which focuses on emotional distress. 3. Cognitive behavioral therapy, which is focused on understanding her thoughts and behaviors . DIAGNOSIS: Major depressive disorder, moderate and recurrent without psychotic features. PLAN: Plan is to maintain medication compliance positive coping skills . This clinician has reviewed the patient's chart and discussed the treatment with the treatment team. Psychotherapy provided to this patient, 50 minutes. Florencio Flores PsyD. DR: DIANA JOB#: [id number] CC:
[2019-02-01] MEDS: OLANZapine 10mg tab ORAL SCH (08:41)
[2019-02-01] MEDS: Depakote 125mg Sprinkles ORAL SCH (08:41)
[2019-02-01] MEDS: Calcium Carbonate 500mg w/Vit D 200iu tab ORAL SCH (08:41)
[2019-02-01] MEDS: Vitamin D 1000 IU Tab ORAL SCH (08:41)
[2019-02-01] MEDS: Benztropine 1mg tab ORAL SCH ×2 (08:41→18:05)
[2019-02-01] MEDS: Docusate 100mg cap ORAL SCH (08:41)
[2019-02-01] MEDS: Heparin 5000 units/ml inj SUBQ SCH (08:46)
--- NOTE | 2019-02-01 08:48 | General Progress Note ---
Assessment/Plan Assessment/Plan: (1) Lumbar DDD (2) Lumbago (3) Peripheral Neuropathy Patient to be continued on Tylenol. D/w Dr. Ng and he concurred. Subjective Date patient seen: February 01, 2019 Time patient seen: 07:00 - am Allergies: Coded Allergies: PENICILLINS (Verified Allergy, Unknown, 01/27/19) Uncoded Allergies: EGGS (Allergy, Unknown, 01/27/19) Subjective REVIEW OF SYSTEMS: Denies rash, fever, chills, sweating, dizziness, drowsiness, blurred vision, sore throat, or change in weight. No shortness of breath or chest pain. No nausea, vomiting, diarrhea, blood in stool or urine. No bowel or bladder incontinence. No dysuria. She is complaining of weakness. SUBJECTIVE: Patient is in bed and showing no signs of pain or distress. Objective Last 24 Hour Vital Signs Date Time Temp Pulse Resp B/P (MAP) Pulse Ox O2 Delivery O2 Flow Rate FiO2 02/01/19 08:00 97.4 84 13 112/70 (84) 96 02/01/19 04:00 97.5 68 18 128/78 (95) 100 02/01/19 00:00 98.0 72 20 117/60 (79) 95 01/31/19 21:00 Room Air 01/31/19 20:00 98.3 83 20 130/69 (89) 95 01/31/19 16:00 97.2 80 20 128/95 (106) 95 01/31/19 12:00 97.7 68 16 113/59 (77) 95 Intake and Output 01/31/19 02/01/19 19:00 07:00 Intake Total 1140 ml 720 ml Output Total 400 ml Balance 740 ml 720 ml Intake Oral 480 ml IV Total 660 ml 720 ml Output Urine Total 400 ml # Voids 3 2 Height (Feet): 5 Height (Inches): 4.00 Weight (Pounds): 197 Objective GENERAL: Alert, awake, and oriented. LUNGS: Clear bilaterally. HEART: S1 S2 Regular. ABDOMEN: Obese. EXTREMITIES: No cyanosis. No clubbing. NEURO: No changes. Errol Warren February 01, 2019 08:48
[2019-02-01 12:00] VITALS: BP 134/72
--- NOTE | 2019-02-01 12:50 | Pulmonology Progress Note ---
Assessment/Plan Problems: (1) Acute encephalopathy (2) UTI (urinary tract infection) (3) Intractable low back pain (4) Lumbar disc disease Assessment/Plan improving symptomatic treatment pain management all reviewed medication reviewed dvt prophylaxis. continue same regiment dc planning Subjective ROS Limited/Unobtainable: No Constitutional: Reports: no symptoms HEENT: Repors: no symptoms Respiratory: Reports: no symptoms Allergies: Coded Allergies: PENICILLINS (Verified Allergy, Unknown, 01/27/19) Uncoded Allergies: EGGS (Allergy, Unknown, 01/27/19) Objective Last 24 Hour Vital Signs Date Time Temp Pulse Resp B/P (MAP) Pulse Ox O2 Delivery O2 Flow Rate FiO2 02/01/19 09:00 Room Air 02/01/19 08:00 97.4 84 13 112/70 (84) 96 02/01/19 04:00 97.5 68 18 128/78 (95) 100 02/01/19 00:00 98.0 72 20 117/60 (79) 95 01/31/19 21:00 Room Air 01/31/19 20:00 98.3 83 20 130/69 (89) 95 01/31/19 16:00 97.2 80 20 128/95 (106) 95 Intake and Output 01/31/19 02/01/19 19:00 07:00 Intake Total 1140 ml 720 ml Output Total 400 ml Balance 740 ml 720 ml Intake Oral 480 ml IV Total 660 ml 720 ml Output Urine Total 400 ml # Voids 3 2 Objective General Appearance: WD/WN HEENT: normocephalic, atraumatic Respiratory/Chest: chest wall non-tender, lungs clear Breasts: no masses Cardiovascular: normal peripheral pulses Abdomen: normal bowel sounds, soft, non tender, no scars Extremities: no cyanosis Skin: no rash Current Medications Medications (Trade) Dose Ordered Sig/Servando Route PRN Reason Start Time Stop Time Status Last Admin Dose Admin Acetaminophen (Tylenol) 650 mg Q4H PRN ORAL fever 01/28/19 08:15 02/27/19 08:14 Acetaminophen (Tylenol) 650 mg Q6HR PRN ORAL Mild Pain (Pain Scale 1-3) 01/28/19 02:15 02/27/19 02:14 Al Hydroxide/Mg Hydroxide (Mylanta II) 30 ml Q4HR PRN ORAL GI DISTRESS 01/28/19 02:15 02/27/19 02:14 Benztropine Mesylate (Cogentin) 1 mg BID ORAL 01/28/19 09:00 02/27/19 08:59 02/01/19 08:41 Bisacodyl (Dulcolax) 10 mg NEEDED PRN RECTAL Constipation 01/28/19 02:15 02/27/19 02:14 Calcium Carbonate (OsCal D) 1 tab DAILY ORAL 01/28/19 09:00 02/27/19 08:59 02/01/19 08:41 Clonidine HCl (Catapres Tab) 0.1 mg EVERY 6 HOURS PRN ORAL For High Blood Pressure 01/28/19 02:15 02/27/19 02:14 Dextrose (Dextrose 50%) 25 ml Q30M PRN IV Hypoglycemia 01/28/19 08:15 02/27/19 08:14 Dextrose (Dextrose 50%) 50 ml Q30M PRN IV Hypoglycemia 01/28/19 08:15 02/27/19 08:14 Dextrose/Sodium Chloride 1,000 ml @ 60 mls/hr [id number] IV 01/28/19 02:15 02/27/19 02:14 02/01/19 06:16 Divalproex Sodium (Depakote Sprinkles) 125 mg DAILY ORAL 01/28/19 09:00 02/27/19 08:59 02/01/19 08:41 Divalproex Sodium (Depakote) 250 mg BEDTIME ORAL 01/28/19 21:00 02/27/19 20:59 01/31/19 20:42 Docusate Sodium (Colace) 100 mg DAILY ORAL 01/28/19 09:00 02/27/19 08:59 02/01/19 08:41 Gabapentin (Neurontin) 300 mg TID ORAL 01/28/19 09:00 02/27/19 08:59 02/01/19 12:37 Heparin Sodium (Porcine) (Heparin 5000 units/ml) 5,000 units EVERY 12 HOURS SUBQ 01/28/19 09:00 02/27/19 08:59 02/01/19 08:46 Lorazepam (Ativan 2mg/ml 1ml) 0.5 mg Q4H PRN IV For Anxiety 01/28/19 08:15 02/04/19 08:14 Magnesium Hydroxide (Mom) 30 ml DAILY PRN ORAL Constipation 01/28/19 02:15 02/27/19 02:14 Olanzapine (ZyPREXA) 10 mg DAILY ORAL 01/28/19 09:00 02/27/19 08:59 02/01/19 08:41 Olanzapine (ZyPREXA) 15 mg BEDTIME ORAL 01/28/19 21:00 02/27/19 20:59 01/31/19 20:41 Ondansetron HCl (Zofran) 4 mg Q6H PRN IVP Nausea & Vomiting 01/28/19 08:15 02/27/19 08:14 Polyethylene Glycol (Miralax) 17 gm HSPRN PRN ORAL Constipation 01/28/19 08:15 02/27/19 08:14 Sodium Phosphate (Fleet's Sodium Phosl Enema) 133 ml NEEDED PRN RECTAL Constipation 01/28/19 02:15 02/27/19 02:14 Vitamin D (Vitamin D) 2,000 intlu DAILY ORAL 01/28/19 09:00 02/27/19 08:59 02/01/19 08:41 Zolpidem Tartrate (Ambien) 5 mg HSPRN PRN ORAL Insomnia 01/28/19 08:15 02/04/19 08:14 Deny Gan MD February 01, 2019 12:50
--- NOTE | 2019-02-01 14:38 | General Progress Note ---
Assessment/Plan Problem List: (1) UTI (urinary tract infection) ICD Codes: N39.0 - Urinary tract infection, site not specified SNOMED: 24471810 (2) Lumbar disc disease ICD Codes: M51.9 - Unspecified thoracic, thoracolumbar and lumbosacral intervertebral disc disorder SNOMED: 462079055 (3) Intractable low back pain ICD Codes: M54.5 - Low back pain SNOMED: 12729072082131405 (4) Altered mental status ICD Codes: R41.82 - Altered mental status, unspecified SNOMED: 780813258 Qualifiers: Qualified Codes: R40.0 - Somnolence (5) Sacral decubitus ulcer, stage III ICD Codes: L89.153 - Pressure ulcer of sacral region, stage 3 SNOMED: 399037657, 699413850 Status: stable, progressing Assessment/Plan: wound care abx per id, pt diet eval psyc neuro eval cbc bmp am dc if clear Subjective Constitutional: Reports: weakness Allergies: Coded Allergies: PENICILLINS (Verified Allergy, Unknown, 01/27/19) Uncoded Allergies: EGGS (Allergy, Unknown, 01/27/19) All Systems: reviewed and negative except above Subjective sl confused Objective Last 24 Hour Vital Signs Date Time Temp Pulse Resp B/P (MAP) Pulse Ox O2 Delivery O2 Flow Rate FiO2 02/01/19 12:00 98.0 76 16 134/72 (92) 98 02/01/19 09:00 Room Air 02/01/19 08:00 97.4 84 13 112/70 (84) 96 02/01/19 04:00 97.5 68 18 128/78 (95) 100 02/01/19 00:00 98.0 72 20 117/60 (79) 95 01/31/19 21:00 Room Air 01/31/19 20:00 98.3 83 20 130/69 (89) 95 01/31/19 16:00 97.2 80 20 128/95 (106) 95 Intake and Output 01/31/19 02/01/19 19:00 07:00 Intake Total 1140 ml 720 ml Output Total 400 ml Balance 740 ml 720 ml Intake Oral 480 ml IV Total 660 ml 720 ml Output Urine Total 400 ml # Voids 3 2 Height (Feet): 5 Height (Inches): 4.00 Weight (Pounds): 197 General Appearance: lethargic EENT: normal ENT inspection Neck: normal alignment Cardiovascular: normal peripheral pulses, normal rate, regular rhythm Respiratory/Chest: chest wall non-tender, lungs clear, normal breath sounds Abdomen: normal bowel sounds, non tender, soft Edema: no edema noted Arm (L), no edema noted Arm (R), no edema noted Leg (L), no edema noted Leg (R), no edema noted Pedal (L), no edema noted Pedal (R), no edema noted Generalized Neurologic: responsive, motor weakness Skin: normal pigmentation, warm/dry Alexandro Albarado DO February 01, 2019 14:38
[2019-02-01 16:00] VITALS: BP 128/78
--- NOTE | 2019-02-01 16:06 | NUR ---
NURSE NOTES: Charge nurse, Leeann, told me to call and re-schedule on the picker and sorter load and unload time for patient. MD Humberto garcia see patient before discharge. I will call [facility] after MD Paul sees patient.
--- NOTE | 2019-02-01 18:25 | NUR ---
NURSE NOTES: Report given to Chary at [facility].
--- NOTE | 2019-02-01 18:37 | Infectious Diseases Prog Note ---
Assessment/Plan Assessment/Plan ASSESSMENT: 1. Dysuria/microscopic hematuria, probable cystitis., s/p Rx -u/a no pyuria, leuk est +1; ucx MIXED UROGENITAL CONTAMINANTS COLONY COUNT: 10,000 - 20,000 CFU/ML -REnal US: Negative examination. Significant limitations on this exam due to large body habitus 2. Afebrile. 3. Normal white blood cell count. CT L Spine: Mild degenerative disc disease. Right psoas and iliopsoas muscle atrophy. - Neuropathy. - Hypertension. - COPD. - Dysphagia. -Diabetes. -. Schizophrenia. - Bipolar disorder. - Depression/anxiety. - Hyperlipidemia. PLAN: 1.Continue to monitor off abx -01/31 SP Cipro #4 2. We will send urine culture. 3. We will monitor CBC and BMP. 4. Based on the patient's clinical course and labs, we will do further recommendations. Thank you, Dr. Alexandro Albarado, for allowing me to participate in the care of this patient. I will follow the patient with you during this admission. Subjective Allergies: Coded Allergies: PENICILLINS (Verified Allergy, Unknown, 01/27/19) Uncoded Allergies: EGGS (Allergy, Unknown, 01/27/19) Subjective afebrile no leukocytosis Objective Vital Signs Last 24 Hour Vital Signs Date Time Temp Pulse Resp B/P (MAP) Pulse Ox O2 Delivery O2 Flow Rate FiO2 02/01/19 16:00 98.3 78 18 128/78 (95) 96 02/01/19 12:00 98.0 76 16 134/72 (92) 98 02/01/19 09:00 Room Air 02/01/19 08:00 97.4 84 13 112/70 (84) 96 02/01/19 04:00 97.5 68 18 128/78 (95) 100 02/01/19 00:00 98.0 72 20 117/60 (79) 95 01/31/19 21:00 Room Air 01/31/19 20:00 98.3 83 20 130/69 (89) 95 Height (Feet): 5 Height (Inches): 4.00 Weight (Pounds): 197 Objective HEENT: No pale conjunctivae. No scleral icterus. NECK: No lymphadenopathy. CHEST: Clear. HEART: S1 and S2. ABDOMEN: Soft, obese, nontender. No flank tenderness. EXTREMITIES: No cyanosis at this time. NEUROLOGIC: Awake. Current Medications Medications (Trade) Dose Ordered Sig/Servando Route PRN Reason Start Time Stop Time Status Last Admin Dose Admin Acetaminophen (Tylenol) 650 mg Q4H PRN ORAL fever 01/28/19 08:15 02/27/19 08:14 Acetaminophen (Tylenol) 650 mg Q6HR PRN ORAL Mild Pain (Pain Scale 1-3) 01/28/19 02:15 02/27/19 02:14 Al Hydroxide/Mg Hydroxide (Mylanta II) 30 ml Q4HR PRN ORAL GI DISTRESS 01/28/19 02:15 02/27/19 02:14 Benztropine Mesylate (Cogentin) 1 mg BID ORAL 01/28/19 09:00 02/27/19 08:59 02/01/19 18:05 Bisacodyl (Dulcolax) 10 mg NEEDED PRN RECTAL Constipation 01/28/19 02:15 02/27/19 02:14 Calcium Carbonate (OsCal D) 1 tab DAILY ORAL 01/28/19 09:00 02/27/19 08:59 02/01/19 08:41 Clonidine HCl (Catapres Tab) 0.1 mg EVERY 6 HOURS PRN ORAL For High Blood Pressure 01/28/19 02:15 02/27/19 02:14 Dextrose (Dextrose 50%) 25 ml Q30M PRN IV Hypoglycemia 01/28/19 08:15 02/27/19 08:14 Dextrose (Dextrose 50%) 50 ml Q30M PRN IV Hypoglycemia 01/28/19 08:15 02/27/19 08:14 Dextrose/Sodium Chloride 1,000 ml @ 60 mls/hr [id number] IV 01/28/19 02:15 02/27/19 02:14 02/01/19 06:16 Divalproex Sodium (Depakote Sprinkles) 125 mg DAILY ORAL 01/28/19 09:00 02/27/19 08:59 02/01/19 08:41 Divalproex Sodium (Depakote) 250 mg BEDTIME ORAL 01/28/19 21:00 02/27/19 20:59 01/31/19 20:42 Docusate Sodium (Colace) 100 mg DAILY ORAL 01/28/19 09:00 02/27/19 08:59 02/01/19 08:41 Gabapentin (Neurontin) 300 mg TID ORAL 01/28/19 09:00 02/27/19 08:59 02/01/19 18:06 Heparin Sodium (Porcine) (Heparin 5000 units/ml) 5,000 units EVERY 12 HOURS SUBQ 01/28/19 09:00 02/27/19 08:59 02/01/19 08:46 Lorazepam (Ativan 2mg/ml 1ml) 0.5 mg Q4H PRN IV For Anxiety 01/28/19 08:15 02/04/19 08:14 Magnesium Hydroxide (Mom) 30 ml DAILY PRN ORAL Constipation 01/28/19 02:15 02/27/19 02:14 Olanzapine (ZyPREXA) 10 mg DAILY ORAL 01/28/19 09:00 02/27/19 08:59 02/01/19 08:41 Olanzapine (ZyPREXA) 15 mg BEDTIME ORAL 01/28/19 21:00 02/27/19 20:59 01/31/19 20:41 Ondansetron HCl (Zofran) 4 mg Q6H PRN IVP Nausea & Vomiting 01/28/19 08:15 02/27/19 08:14 Polyethylene Glycol (Miralax) 17 gm HSPRN PRN ORAL Constipation 01/28/19 08:15 02/27/19 08:14 Sodium Phosphate (Fleet's Sodium Phosl Enema) 133 ml NEEDED PRN RECTAL Constipation 01/28/19 02:15 02/27/19 02:14 Vitamin D (Vitamin D) 2,000 intlu DAILY ORAL 01/28/19 09:00 02/27/19 08:59 02/01/19 08:41 Zolpidem Tartrate (Ambien) 5 mg HSPRN PRN ORAL Insomnia 01/28/19 08:15 02/04/19 08:14 Zena Philip M.D. February 01, 2019 18:37
--- NOTE | 2019-02-01 19:30 | NUR ---
NURSE NOTES: Patient in bed. Not in respiratory distress. No complaints of pain. For discharge. Waiting for slat pickler.
--- NOTE | 2019-02-01 19:36 | NUR ---
HAND-OFF: Report given to CARMELA Crow.
--- NOTE | 2019-02-01 20:20 | NUR ---
NURSE NOTES: Discharged patient stable via gurney with [facility]. Belongings checked and gave it to patient. Pt going back to the same facility she came from.
--- NOTE | 2019-02-02 01:15 | Progress Note ---
DATE: 01/31/2019 PSYCHOTHERAPY CONSULTATION PROGRESS NOTE CONSULTING PHYSICIAN: Florencio Flores PsyD. TREATING ATTENDING PHYSICIAN: Alexandro Albarado D.O. SUBJECTIVE: The patient is a 58-year-old female patient who came from [facility]. The patient has been confused, disorganized and highly anxious; however, she states that today she is feeling anxious because she wants to go home and she is asking when she is going to be discharged. The patient has difficulty with her memory, poor attention and concentration. She is confused and altered in mental status; however, denies suicidal or homicidal thoughts of ideation. Denies any auditory or visual hallucinations. I ASSESSED THE PATIENT, PROVIDED THE PATIENT WITH: 1. Reality orientation which is focused on improving cognitive function of the patient who is confused and disorganized. Oriented to person, place, time, and situation. 2. Supportive psychotherapy, which would provide the patient with emotional outlet and means to cope with emotional distress and encouraging the patient to articulate her thoughts utilizing positive communication skills. 3. I provided the patient with cognitive behavioral therapy, which can help with a range of problems that may involve patterns of being acting that are problematic, addressing the patient's feelings of anxiety and helplessness. We are working on coping skills to reduce her anxiety and working on increasing the patient's positive thinking strategies as well. Plan is to maintain medication compliance with the progression of reality of thoughts, for positive coping skills and stabilizing the thoughts and behavior. This clinician has reviewed the patient's chart. Discussed the treatment with treatment team. Psychotherapy provided to this patient, 20 minutes. Florencio Flores PsyD. : Natalie JOB#: [id number] CC:
--- NOTE | 2019-02-02 15:02 | Discharge Summary ---
Discharge Summary Discharge Summary _ DATE OF ADMISSION: 01/27/2019 DATE OF DISCHARGE: 02/01/2019 DISCHARGED BY: Dr. Alexandro Albarado CONSULTANTS: Dr. Zena Flores [facility] Hospital COURSE: Patient is a 58-year-old female, from [facility], presented to ED due to intractable low back pain. She complained of low back pain and painful urination. Onset was for the last few days. There was no nausea, no vomiting. No fever or chills. Pain was 8 out of 10. History was limited. She has medical history significant for hypertension, COPD, bipolar and schizoaffective history. On evaluation at the ED, vital signs were stable. Labs were unremarkable. Urinalysis showed 5+ blood, 1+ leukocyte esterase, 10-15 RBC and 0-[address] scan of the lumbar spine showed degenerative changes and right psoas and iliopsoas muscle atrophy. She was then admitted for evaluation of intractable low back pain and lumbar disc disease. Neurologist was consulted. She was placed on neurochecks every 4 hours. TSH was normal. She was given physical and speech therapy. ID was consulted. Patient has dysuria with microscopic hematuria, probable cystitis. She was started on ciprofloxacin p.o. 500 mg twice daily. Urine culture showed mixed urogenital contaminants with colony count 10,000-20,000 CFU /mL. Renal ultrasound was negative. Pain management was consulted. She was given Neurontin and morphine as needed. She was eventually taken off morphine and was given Tylenol. She was noted to have right leg weakness. She was recommended EMG NCS which can be done as outpatient. Patient was noted by nursing to have sacral pressure ulcer, presumed to be stage 3. was consulted. Upon wound evaluation, patient was found to have a stage 2 incontinence associated dermatitis in the sacral region with partial thickness skin breakdown tissue. Wound care was rendered. Incontinence care was ordered. Recommended frequent turning and repositioning. Patient was confused, disorganized and highly anxious. She was provided with reality orientation and supportive psychotherapy. She completed antibiotic course. [facility] FINAL DIAGNOSES: Dysuria with microscopic hematuria, probable cystitis Altered mental status/acute encephalopathy Intractable low back pain Neuropathy Hypertension COPD Dysphagia Schizophrenia Bipolar disorder Depression/anxiety Hyperlipidemia Stage 2 incontinence associated dermatitis in the sacral region with partial thickness skin tissue breakdown, POA DISPOSITION: Patient was discharged to a SNF. DISCHARGE MEDICATIONS: Refer to Discharge Medication List. I have been assigned to complete a discharge summary on this account, I was not involved with the patient's management. Annie Bueno NP February 02, 2019 15:02
== END 2019-02-01 20:15 | DRG 689 ==
LOC: EDBD 20:40 → EMR 20:55 → 4E 21:56 → EDBEDREQ 22:24 → 4E 01-30 23:58
DX: N30.91 Cystitis, unspecified with hematuria (principal); L89.153 Pressure ulcer of sacral region, stage 3; G93.40 Encephalopathy, unspecified; J44.9 Chronic obstructive pulmonary disease, unspecified; G62.9 Polyneuropathy, unspecified; I10 Essential (primary) hypertension; R13.10 Dysphagia, unspecified; F20.9 Schizophrenia, unspecified; F31.9 Bipolar disorder, unspecified; F41.8 Other specified anxiety disorders; E78.5 Hyperlipidemia, unspecified; Z88.0 Allergy status to penicillin; Z91.012 Allergy to eggs; M51.36 Other intervertebral disc degeneration, lumbar region
CPT/HCPCS: 36415; 72131; 76770; 80048; 80053; 81001; 83036; 84443; 85025; 87081; 87086; 96361; 96374; 99285